=== PATIENT | female | born 1945 | race Caucasian/White ===

== ENCOUNTER 2016-05-13 18:54 | Inpatient (IN) | payer MEDICARE, OTHER ==
[~2016-05-13] VITALS: Ht 165.1 cm; Wt 63.0 kg
[~2016-05-13 18:54] MED LIST: ALBU0.63 NEB; AMOX1TAB11 PO; ASPI-482 PO; ATOR10TA60 PO; BENZ100C PO; BUPR200T2 PO; CALC-178 PO; CHOL10003 PO; DEXT30CA6 PO; DICY20TA30 PO; ESCI20TA10 PO; FLUT1DIS IH; FLUT1DIS3 INH; GLUC1CAP48 PO; GUAI100S2 PO; LEVO88TA2 PO; LORA-434 PO; LOSA1TAB12 PO; LUBI8CAP3 PO; MULT1TAB52 PO; PANT40TA5 PO; POTA10CA PO; PROAIR HFA8.5 GM IH; QUET150T PO; ROFL500T PO; TIOT18CA IH
[2016-05-13 20:50] VITALS: BP 146/96
[2016-05-13] MEDS ORDERED: BENZONATATE 100 MG CAPSULE. PO PRN (21:45)
[2016-05-13] MEDS ORDERED: NON FORMULARY ITEM (Albuterol Sulfate (Proair Hfa Inhaler) 2 PUFF) IH SCH (21:45)
[2016-05-13] MEDS ORDERED: OXYCODONE IR 5 MG TABLET. PO PRN (21:45)
[2016-05-13] MEDS ORDERED: MAG HYDROX/ALUMINUM HYD/SIMETH 30 ML ORAL.SUSP PO PRN (21:45)
[2016-05-13] MEDS ORDERED: ONDANSETRON PF 4 MG/2 ML VIAL. IV PRN (21:45)
[2016-05-13] MEDS ORDERED: PROCHLORPERAZINE 25 MG SUPP.RECT. PR PRN (21:45)
[2016-05-13] MEDS ORDERED: CALCIUM CARBONATE 500 MG TAB.CHEW PO PRN (21:45)
[2016-05-13] MEDS ORDERED: PROCHLORPERAZINE 10 MG/2 ML VIAL. IV PRN (21:45)
[2016-05-13] MEDS: MORPHINE SULFATE 2 MG/ML DISP.SYRIN. IV PRN ×2 (21:55→23:55)
[2016-05-13] MEDS: IV 1/2 NORMAL SALINE 1,000 ML IV SCH (22:43)
[2016-05-13] MEDS: ENOXAPARIN 40 MG/0.4 ML DISP.SYRIN. SQ SCH (22:44)
[2016-05-13] MEDS: QUEtiapine 50 MG TAB.ER.24H. PO SCH (22:44)
[2016-05-13] MEDS: DICYCLOMINE HCL 10 MG CAPSULE PO SCH (22:45)
[2016-05-13] MEDS: ATORVASTATIN CALCIUM 10 MG TABLET. PO SCH (22:46)
[2016-05-13 23:00] VITALS: BP 142/54
[2016-05-14] VITALS (13 sets, daily range): BP systolic 87–131; BP diastolic 45–73
[2016-05-14] MEDS: ALBUTEROL SULFATE 2.5 MG/3 ML NEBU. NEB PRN (00:15)
[2016-05-14] MEDS: FENTANYL PF 100 MCG/2 ML VIAL. IV PRN ×6 (01:19→20:06)
[2016-05-14] MEDS: MORPHINE SULFATE 2 MG/ML DISP.SYRIN. IV PRN ×6 (01:54→22:28)
[2016-05-14 04:51] LABS: BASO % 0 % (0-3); EOS % 1 % (0-3); HEMATOCRIT 26.5 % (36.0-47.0); HEMOGLOBIN 9.1 g/dL (12.0-15.5); LYMPH # 1.9 x10^3/uL (1.0-4.8); LYMPH % 18 % (24-48); MEAN CORPUSCULAR HEMOGLOBIN 32 pg (25-35); MEAN CORPUSCULAR HGB CONC 34 g/dL (31-37); MEAN CORPUSCULAR VOLUME 92 fL (79-100); MONO % 8 % (0-9); NEUT % 72 % (31-73); PLATELET COUNT 254 x10^3/uL (140-400); RED BLOOD COUNT 2.87 x10^6/uL (3.50-5.40); RED CELL DISTRIBUTION WIDTH 16.2 % (11.5-14.5); WHITE BLOOD COUNT 10.5 x10^3/uL (4.0-11.0)
[2016-05-14 05:00] LABS: CALCIUM 8.7 mg/dL (8.5-10.1); CREATININE 0.8 mg/dL (0.6-1.0); GFR 70.7; POTASSIUM 3.3 mmol/L (3.5-5.1)
[2016-05-14] MEDS: LEVOTHYROXINE 88 MCG TABLET PO SCH (06:06)
[2016-05-14] MEDS ORDERED: ALPR1TAB2 PO (06:49)
[2016-05-14] MEDS ORDERED: HYDR-2666 PO (07:02)
[2016-05-14] MEDS ORDERED: ARIP5TAB6 PO (07:02)
[2016-05-14] MEDS: IPRATRPIUM/ALBUTEROL 0.5/2.5MG 3 ML NEBU. NEB SCH ×4 (07:14→20:00)
[2016-05-14] MEDS: BUDESONIDE 0.5 MG/2 ML NEBU NEB SCH ×2 (07:15→20:00)
[2016-05-14] MEDS: PANTOPRAZOLE 40 MG TABLET. PO SCH (07:30)
[2016-05-14] MEDS ORDERED: LEVO50TA PO (07:39)
[2016-05-14] MEDS ORDERED: MELO-150 PO (07:39)
[2016-05-14] MEDS ORDERED: TRAZ100T12 PO (07:39)
[2016-05-14] MEDS ORDERED: DULO60CA6 PO (07:39)
[2016-05-14] MEDS ORDERED: LOSA1TAB17 PO (07:39)
[2016-05-14] MEDS ORDERED: CHOL10007 PO (07:39)
[2016-05-14] MEDS ORDERED: POTA20TA82 PO (07:39)
[2016-05-14] MEDS ORDERED: QUET200T4 PO (07:39)
[2016-05-14] MEDS ORDERED: TERI2.4P SQ ×2 (07:39→16:56)
[2016-05-14] MEDS ORDERED: BENZ100C PO (07:39)
[2016-05-14] MEDS ORDERED: GUAI600T28 PO (07:39)
[2016-05-14] MEDS ORDERED: LUTE1CAP3 PO (07:39)
[2016-05-14] MEDS: POTASSIUM CHLORIDE 10 MEQ TABLET.ER. PO SCH (08:00)
[2016-05-14] MEDS ORDERED: POTASSIUM CHLORIDE 20MEQ 50 ML IV ONE (08:30)
[2016-05-14] MEDS ORDERED: hydrALAZINE 20 MG/ML VIAL. IVP PRN (08:30)
[2016-05-14] MEDS ORDERED: BENZONATATE 100 MG CAPSULE. PO PRN (08:30)
[2016-05-14] MEDS: LEVOTHYROXINE 50 MCG TABLET PO SCH (08:30)
[2016-05-14] MEDS ORDERED: ALBUTEROL SULFATE 2.5 MG/3 ML NEBU. NEB PRN (08:30)
[2016-05-14] MEDS ORDERED: MORPHINE SULFATE 4 MG/ML DISP.SYRIN. IV PRN ×2 (08:30→20:15)
[2016-05-14] MEDS ORDERED: POTASSIUM CHLORIDE 40 MEQ PO SCH (09:00)
[2016-05-14] MEDS: DULOXETINE HCL 30 MG CAPSULE.DR. PO SCH (09:00)
[2016-05-14] MEDS ORDERED: NON FORMULARY ITEM (Albuterol Sulfate (Albuterol Sulfate Neb Soln) 1 VIAL) NEB SCH (09:00)
[2016-05-14] MEDS ORDERED: NON FORMULARY ITEM (Losartan/Hydrochlorothiazide (Losartan-Hctz 100-25 Mg Tab) 1 EACH) PO SCH (09:00)
[2016-05-14] MEDS: GUAIFENESIN 200 MG/10 ML LIQUID. PO SCH ×3 (09:00→21:14)
[2016-05-14] MEDS: MULTIVITAMIN with MINERAL TABLET. PO SCH (09:00)
[2016-05-14] MEDS ORDERED: buPROPion SR 100 MG TABLET.SA. PO SCH (09:00)
[2016-05-14] MEDS ORDERED: CHOLECALCIFEROL 1000 UNIT PO SCH (09:00)
[2016-05-14] MEDS ORDERED: NON FORMULARY ITEM (Fluticasone/Salmeterol (Advair 250-50 Diskus) 1 PUFF) INH SCH (09:00)
[2016-05-14] MEDS: CHOLECALCIFEROL (VITAMIN D3) 1,000 UNIT TABLET PO SCH (09:00)
[2016-05-14] MEDS: LUBIPROSTONE 8 MCG CAPSULE PO SCH ×2 (09:00→21:00)
[2016-05-14] MEDS: ROFLUMILAST 500 MCG TABLET. PO SCH (09:00)
[2016-05-14] MEDS: ESCITALOPRAM 10 MG TABLET. PO SCH (09:00)
[2016-05-14] MEDS: LOSARTAN POTASSIUM 50 MG TABLET. PO SCH (09:00)
[2016-05-14] MEDS: ALPRAZOLAM 1 MG TABLET PO SCH ×3 (09:00→21:11)
[2016-05-14] MEDS ORDERED: NON FORMULARY ITEM (Tiotropium Bromide (Spiriva) 1 CAP) IH SCH (09:00)
[2016-05-14] MEDS: DICYCLOMINE HCL 10 MG CAPSULE PO SCH ×4 (09:00→21:11)
[2016-05-14] MEDS ORDERED: NON FORMULARY ITEM (Dextroamphetamine/Amphetamine (Adderall Xr 30 Mg Capsule) 1 CAP) PO SCH (09:00)
[2016-05-14] MEDS ORDERED: LORAZEPAM 1 MG TABLET. PO SCH (09:00)
[2016-05-14] MEDS: IV 1/2 NORMAL SALINE 1,000 ML IV SCH ×2 (10:09→18:00)
[2016-05-14] MEDS: POTASSIUM CHLORIDE 10MEQ 100 ML IV SCH ×2 (10:10→12:04)
--- NOTE | 2016-05-14 10:52 | PDOC ---
Provider Note Provider Note dictated Hx of severe oxygen dependant COPD/ prior h/o vent dependance post surgery under [place] Would prefer spinal if possible continue Nebs/ Check ABG will follow post op REGAN SABILLON MD May 14, 2016 10:52
[2016-05-14 10:56] LABS: PROTHROMBIN TIME PATIENT 12.3 SEC (11.7-14.0)
[2016-05-14] MEDS ORDERED: IV RINGERS,LACTATED 1000ML 1,000 ML IV SCH (11:18)
[2016-05-14] MEDS ORDERED: PROCHLORPERAZINE 10 MG/2 ML VIAL. IV PRN (11:30)
[2016-05-14] MEDS ORDERED: HYDROMORPHONE 2 MG/ML VIAL. IV PRN (11:30)
[2016-05-14] MEDS ORDERED: MORPHINE SULFATE 2 MG/ML DISP.SYRIN. IV PRN (11:30)
[2016-05-14] MEDS ORDERED: FENTANYL PF 100 MCG/2 ML VIAL. IV PRN ×2 (11:30→20:15)
[2016-05-14] MEDS ORDERED: LIDOCAINE 1% 1 ML SYRINGE. ID PRN (11:30)
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
[2016-05-14] MEDS ORDERED: IPRATRPIUM/ALBUTEROL 0.5/2.5MG 3 ML NEBU. NEB SCH (12:00)
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
[2016-05-14 13:39] LABS: HCO3 ABG 27 mmol/L (21-28); PCO2 ABG 43 mmHg (35-46); PH ABG 7.41 (7.35-7.45); PO2 ABG 62 mmHg (65-108); SAT O2 ABG 90 % (92-99)
[2016-05-14] MEDS ORDERED: MAGNESIUM HYDROXIDE 2,400 MG/30 ML ORAL.SUSP. PO PRN (13:45)
[2016-05-14] MEDS ORDERED: ACETAMINOPHEN 325 MG TABLET. PO PRN (13:45)
--- NOTE | 2016-05-14 14:20 | EKG ---
[facility] [address] [place] [address] Test Date: 2016-05-14 Test Time: 14:12:24 Pat Name: DICK DOBBINS Department: Room: [facility] Gender: F Shift Commander: MIKEY : 1945 Requested By: ALEXI VERAS Order Number: [id number] Reading MD: Measurements Intervals [place] Rate: 107 P: 52 SC: 128 QRS: 54 QRSD: 78 T: 45 QT: 330 QTc: 446 Interpretive Statements SINUS TACHYCARDIA QRS(T) CONTOUR ABNORMALITY CONSIDER ANTEROSEPTAL MYOCARDIAL DAMAGE CONSIDER INFERIOR MYOCARDIAL DAMAGE POSSIBLY ABNORMAL ECG RI6.01 Compared to ECG 11/14/2014 21:26:25 Sinus rhythm no longer present Prolonged QT interval no longer present
[2016-05-14] MEDS ORDERED: DEXAMETHASONE SOD PHOS 20 MG/5 ML VIAL. ONE (15:19)
[2016-05-14] MEDS ORDERED: ONDANSETRON PF 4 MG/2 ML VIAL. ONE (15:19)
[2016-05-14] MEDS ORDERED: PROPOFOL 20 ML IV ONE (15:19)
[2016-05-14] MEDS ORDERED: FENTANYL PF 100 MCG/2 ML VIAL. ONE (15:19)
[2016-05-14] MEDS ORDERED: MIDAZOLAM HCL 2 MG/2 ML VIAL. ONE (16:12)
[2016-05-14] MEDS ORDERED: FENTANYL PF 100 MCG/2 ML VIAL. IV ONE (16:15)
[2016-05-14] MEDS ORDERED: CEFAZOLIN 2GM PREMIX 50 ML IV ONE (17:00)
[2016-05-14] MEDS ORDERED: BUPIVACAINE MPF 0.5% 30 ML VIAL. ONE (18:38)
[2016-05-14] MEDS ORDERED: PHENYLEPHRINE in 0.9% NACL PF 1 MG/10 ML DISP.SYRIN. IV ONE (18:56)
[2016-05-14] MEDS ORDERED: PHENYLEPHRINE 10 MG/ML VIAL. ONE (18:56)
[2016-05-14] MEDS ORDERED: DEXTROSE 50% 25 GM / 50ML DISP.SYRIN. IV PRN (20:15)
[2016-05-14] MEDS ORDERED: POLYETHYLENE GLYCOL 3350 17 GM PACKET. PO PRN (20:15)
[2016-05-14] MEDS ORDERED: OXYCODONE IR 5 MG TABLET. PO PRN (20:15)
[2016-05-14] MEDS ORDERED: ONDANSETRON PF 4 MG/2 ML VIAL. IV PRN (20:15)
[2016-05-14 20:40] LABS: MAGNESIUM 1.3 mg/dL (1.8-2.4); PHOSPHORUS 4.3 mg/dL (2.6-4.7)
[2016-05-14] MEDS ORDERED: WARFARIN 6 MG TABLET. PO ONE (21:00)
[2016-05-14] MEDS ORDERED: QUETIAPINE FUMARATE 200 MG PO SCH (21:00)
[2016-05-14] MEDS ORDERED: ATORVASTATIN CALCIUM 10 MG TABLET. PO SCH (21:00)
[2016-05-14] MEDS: QUEtiapine 50 MG TAB.ER.24H. PO SCH (21:09)
[2016-05-14] MEDS: ATORVASTATIN CALCIUM 10 MG TABLET. PO SCH (21:11)
[2016-05-14] MEDS: traZODone 100 MG TABLET. PO SCH (21:11)
[2016-05-14] MEDS: DOCUSATE SODIUM 100 MG CAPSULE PO SCH (21:11)
[2016-05-14] MEDS: HYDROCODONE/APAP 5/325MG TABLET. PO PRN (21:13)
[2016-05-14] MEDS: ENOXAPARIN 40 MG/0.4 ML DISP.SYRIN. SQ SCH (21:26)
[2016-05-14] MEDS: SENNOSIDES/DOCUSATE 8.6/50MG TABLET. PO SCH (21:31)
[2016-05-14] MEDS ORDERED: MAGNESIUM SULFATE 2GM 50 ML IV ONE (22:00)
[2016-05-14] MEDS: NON FORMULARY ITEM (Teriparatide (Forteo) 20 MCG) SQ SCH (22:58)
[2016-05-14] MEDS: CEFAZOLIN 2GM PREMIX 50 ML IV SCH (23:38)
[2016-05-15] MEDS: IV 1/2 NORMAL SALINE 1,000 ML IV SCH ×3 (02:27→22:26)
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
[2016-05-15 03:00] VITALS: BP 115/76
[2016-05-15 05:27] LABS: BASO % 0 % (0-3); EOS % 0 % (0-3); HEMATOCRIT 22.7 % (36.0-47.0); HEMOGLOBIN 7.6 g/dL (12.0-15.5); LYMPH # 0.7 x10^3/uL (1.0-4.8); LYMPH % 10 % (24-48); MEAN CORPUSCULAR HEMOGLOBIN 32 pg (25-35); MEAN CORPUSCULAR HGB CONC 34 g/dL (31-37); MEAN CORPUSCULAR VOLUME 94 fL (79-100); MONO % 11 % (0-9); NEUT % 79 % (31-73); PLATELET COUNT 216 x10^3/uL (140-400); RED BLOOD COUNT 2.42 x10^6/uL (3.50-5.40); RED CELL DISTRIBUTION WIDTH 15.8 % (11.5-14.5); WHITE BLOOD COUNT 6.9 x10^3/uL (4.0-11.0)
[2016-05-15] MEDS: CEFAZOLIN 2GM PREMIX 50 ML IV SCH ×2 (05:53→13:00)
[2016-05-15] MEDS: LEVOTHYROXINE 50 MCG TABLET PO SCH (05:53)
[2016-05-15] MEDS: PANTOPRAZOLE 40 MG TABLET. PO SCH (05:53)
[2016-05-15] MEDS: LEVOTHYROXINE 88 MCG TABLET PO SCH (05:53)
[2016-05-15 05:56] LABS: CALCIUM 8.1 mg/dL (8.5-10.1); CREATININE 0.7 mg/dL (0.6-1.0); GFR 82.5
[2016-05-15] MEDS ORDERED: MAGNESIUM HYDROXIDE 2,400 MG/30 ML ORAL.SUSP. PO PRN (06:00)
[2016-05-15 07:00] VITALS: BP 115/62
[2016-05-15] MEDS: IPRATRPIUM/ALBUTEROL 0.5/2.5MG 3 ML NEBU. NEB SCH ×4 (07:04→20:50)
[2016-05-15] MEDS: BUDESONIDE 0.5 MG/2 ML NEBU NEB SCH ×2 (07:05→20:50)
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
[2016-05-15] MEDS: ESCITALOPRAM 10 MG TABLET. PO SCH (09:00)
[2016-05-15] MEDS ORDERED: NON FORMULARY ITEM (Teriparatide (Forteo) 20 MCG) SQ SCH ×2 (09:00)
[2016-05-15] MEDS: SENNOSIDES/DOCUSATE 8.6/50MG TABLET. PO SCH ×2 (09:00→09:33)
[2016-05-15] MEDS: NON FORMULARY ITEM (Dextroamphetamine/Amphetamine (Adderall Xr 30 Mg Capsule) 1 CAP) PO SCH (09:31)
[2016-05-15] MEDS: GUAIFENESIN 200 MG/10 ML LIQUID. PO SCH ×3 (09:32→22:11)
[2016-05-15] MEDS: MULTIVITAMIN with MINERAL TABLET. PO SCH (09:32)
[2016-05-15] MEDS: CHOLECALCIFEROL (VITAMIN D3) 1,000 UNIT TABLET PO SCH (09:32)
[2016-05-15] MEDS: ROFLUMILAST 500 MCG TABLET. PO SCH (09:32)
[2016-05-15] MEDS: POTASSIUM CHLORIDE 10 MEQ TABLET.ER. PO SCH (09:32)
[2016-05-15] MEDS: LOSARTAN POTASSIUM 50 MG TABLET. PO SCH (09:32)
[2016-05-15] MEDS: DULOXETINE HCL 30 MG CAPSULE.DR. PO SCH (09:32)
[2016-05-15] MEDS: ALPRAZOLAM 1 MG TABLET PO SCH ×3 (09:33→22:11)
[2016-05-15] MEDS: DOCUSATE SODIUM 100 MG CAPSULE PO SCH ×2 (09:33→22:10)
[2016-05-15] MEDS: DICYCLOMINE HCL 10 MG CAPSULE PO SCH ×4 (09:33→22:09)
[2016-05-15] MEDS: ARIPIPRAZOLE 5 MG TABLET. PO SCH (09:33)
[2016-05-15 10:42] LABS: INR 1.1 (0.8-1.1); PROTHROMBIN TIME PATIENT 13.1 SEC (11.7-14.0)
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
[2016-05-15 11:00] VITALS: BP 95/57
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
[2016-05-15] MEDS ORDERED: MAGNESIUM CITRATE 296 ML SOLUTION. PO ONE (12:45)
[2016-05-15] MEDS: LIDOCAINE (700MG/PATCH) PATCH. TD SCH (13:15)
[2016-05-15] MEDS: HYDROCODONE/APAP 7.5/325MG TABLET. PO PRN ×2 (13:22→18:38)
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
[2016-05-15 15:00] VITALS: BP 92/55
[2016-05-15] MEDS ORDERED: WARFARIN 6 MG TABLET. PO ONE (16:00)
[2016-05-15] MEDS ORDERED: BISACODYL 10 MG SUPP.RECT PR PRN (16:00)
[2016-05-15 19:00] VITALS: BP 83/48
[2016-05-15] MEDS ORDERED: IV 1/2 NORMAL SALINE 1,000 ML IV ONE (20:45)
[2016-05-15] MEDS: NON FORMULARY ITEM (Teriparatide (Forteo) 20 MCG) SQ SCH (21:00)
[2016-05-15] MEDS: ATORVASTATIN CALCIUM 10 MG TABLET. PO SCH (22:10)
[2016-05-15] MEDS: traZODone 100 MG TABLET. PO SCH (22:10)
[2016-05-15] MEDS: QUEtiapine 50 MG TAB.ER.24H. PO SCH (22:11)
[2016-05-15] MEDS: ENOXAPARIN 40 MG/0.4 ML DISP.SYRIN. SQ SCH (22:13)
[2016-05-15 23:43] VITALS: BP 113/59
[2016-05-16] MEDS: HYDROCODONE/APAP 7.5/325MG TABLET. PO PRN ×4 (00:44→21:16)
[2016-05-16 03:19] VITALS: BP 110/61
[2016-05-16] MEDS: LEVOTHYROXINE 50 MCG TABLET PO SCH (06:17)
[2016-05-16] MEDS: PANTOPRAZOLE 40 MG TABLET. PO SCH (06:17)
[2016-05-16] MEDS: IV 1/2 NORMAL SALINE 1,000 ML IV SCH ×2 (06:18→22:23)
[2016-05-16 07:00] VITALS: BP 105/64
[2016-05-16] MEDS: IPRATRPIUM/ALBUTEROL 0.5/2.5MG 3 ML NEBU. NEB SCH ×4 (07:43→20:46)
[2016-05-16] MEDS: BUDESONIDE 0.5 MG/2 ML NEBU NEB SCH ×2 (07:43→20:46)
[2016-05-16] MEDS: NON FORMULARY ITEM (Dextroamphetamine/Amphetamine (Adderall Xr 30 Mg Capsule) 1 CAP) PO SCH (09:00)
[2016-05-16] MEDS: GUAIFENESIN 200 MG/10 ML LIQUID. PO SCH ×3 (10:04→21:20)
[2016-05-16] MEDS: ROFLUMILAST 500 MCG TABLET. PO SCH (10:04)
[2016-05-16] MEDS: MULTIVITAMIN with MINERAL TABLET. PO SCH (10:04)
[2016-05-16] MEDS: DOCUSATE SODIUM 100 MG CAPSULE PO SCH ×2 (10:04→21:20)
[2016-05-16] MEDS: DICYCLOMINE HCL 10 MG CAPSULE PO SCH ×4 (10:04→21:19)
[2016-05-16] MEDS: CHOLECALCIFEROL (VITAMIN D3) 1,000 UNIT TABLET PO SCH (10:04)
[2016-05-16] MEDS: ALPRAZOLAM 1 MG TABLET PO SCH ×3 (10:04→21:20)
[2016-05-16] MEDS: DULOXETINE HCL 30 MG CAPSULE.DR. PO SCH (10:04)
[2016-05-16] MEDS: POTASSIUM CHLORIDE 10 MEQ TABLET.ER. PO SCH (10:05)
[2016-05-16] MEDS: SENNOSIDES/DOCUSATE 8.6/50MG TABLET. PO SCH (10:05)
[2016-05-16] MEDS: ESCITALOPRAM 10 MG TABLET. PO SCH (10:05)
[2016-05-16] MEDS: LIDOCAINE (700MG/PATCH) PATCH. TD SCH (10:06)
[2016-05-16] MEDS: ARIPIPRAZOLE 5 MG TABLET. PO SCH (10:06)
[2016-05-16 11:18] LABS: INR 2.2 (0.8-1.1); PROTHROMBIN TIME PATIENT 23.3 SEC (11.7-14.0)
[2016-05-16 11:19] VITALS: BP 91/45
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
[2016-05-16] MEDS ORDERED: MAGNESIUM CITRATE 296 ML SOLUTION. PO ONE (14:45)
[2016-05-16] MEDS: POLYETHYLENE GLYCOL 3350 17 GM PACKET. PO SCH ×2 (14:59→21:16)
[2016-05-16 15:00] VITALS: BP 102/62
[2016-05-16] MEDS ORDERED: WARFARIN 1 MG TABLET. PO ONE (16:00)
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
[2016-05-16 19:15] VITALS: BP 125/72
[2016-05-16] MEDS: ONDANSETRON PF 4 MG/2 ML VIAL. IV PRN (21:15)
[2016-05-16] MEDS: QUEtiapine 50 MG TAB.ER.24H. PO SCH (21:20)
[2016-05-16] MEDS: ATORVASTATIN CALCIUM 10 MG TABLET. PO SCH (21:20)
[2016-05-16] MEDS: traZODone 100 MG TABLET. PO SCH (21:20)
[2016-05-16] MEDS: NON FORMULARY ITEM (Teriparatide (Forteo) 20 MCG) SQ SCH (21:25)
[2016-05-16 23:46] VITALS: BP 118/52
[2016-05-17] VITALS (11 sets, daily range): BP systolic 95–139; BP diastolic 50–80
[2016-05-17] MEDS: ALBUTEROL SULFATE 2.5 MG/3 ML NEBU. NEB PRN (00:49)
[2016-05-17] MEDS ORDERED: BREO ELLIPTA 21 EACH IH (02:54)
[2016-05-17] MEDS ORDERED: TIOT18CA IH (02:54)
[2016-05-17] MEDS ORDERED: MELA3TAB PO (02:54)
[2016-05-17] MEDS ORDERED: UBID100C3 PO (02:54)
[2016-05-17] MEDS ORDERED: OMEG300C PO (02:54)
[2016-05-17] MEDS ORDERED: MIRT15TA3 PO (02:54)
[2016-05-17] MEDS: IV 1/2 NORMAL SALINE 1,000 ML IV SCH ×2 (06:29→15:38)
[2016-05-17] MEDS: HYDROCODONE/APAP 7.5/325MG TABLET. PO PRN (06:36)
[2016-05-17] MEDS: LEVOTHYROXINE 50 MCG TABLET PO SCH (06:36)
[2016-05-17] MEDS: PANTOPRAZOLE 40 MG TABLET. PO SCH (06:36)
[2016-05-17] MEDS: BUDESONIDE 0.5 MG/2 ML NEBU NEB SCH ×2 (07:21→21:37)
[2016-05-17] MEDS: IPRATRPIUM/ALBUTEROL 0.5/2.5MG 3 ML NEBU. NEB SCH ×4 (07:21→21:37)
[2016-05-17] MEDS: LIDOCAINE (700MG/PATCH) PATCH. TD SCH (09:00)
[2016-05-17] MEDS: POLYETHYLENE GLYCOL 3350 17 GM PACKET. PO SCH ×2 (09:00→22:26)
[2016-05-17] MEDS: SENNOSIDES/DOCUSATE 8.6/50MG TABLET. PO SCH (09:25)
[2016-05-17] MEDS: POTASSIUM CHLORIDE 10 MEQ TABLET.ER. PO SCH (09:25)
[2016-05-17] MEDS: GUAIFENESIN 200 MG/10 ML LIQUID. PO SCH ×3 (09:25→22:27)
[2016-05-17] MEDS: ROFLUMILAST 500 MCG TABLET. PO SCH (09:25)
[2016-05-17] MEDS: ALPRAZOLAM 1 MG TABLET PO SCH (09:26)
[2016-05-17] MEDS: MULTIVITAMIN with MINERAL TABLET. PO SCH (09:26)
[2016-05-17] MEDS: ESCITALOPRAM 10 MG TABLET. PO SCH (09:26)
[2016-05-17] MEDS: ARIPIPRAZOLE 5 MG TABLET. PO SCH (09:26)
[2016-05-17] MEDS: DOCUSATE SODIUM 100 MG CAPSULE PO SCH ×2 (09:26→22:25)
[2016-05-17] MEDS: DICYCLOMINE HCL 10 MG CAPSULE PO SCH ×4 (09:26→22:27)
[2016-05-17] MEDS: CHOLECALCIFEROL (VITAMIN D3) 1,000 UNIT TABLET PO SCH (09:27)
[2016-05-17] MEDS: DULOXETINE HCL 30 MG CAPSULE.DR. PO SCH (09:27)
[2016-05-17 12:08] LABS: HCO3 ABG 35 mmol/L (21-28); PH ABG 7.38 (7.35-7.45); PO2 ABG 70 mmHg (65-108); SAT O2 ABG 95 % (92-99)
[2016-05-17 12:15] LABS: FIO2 ABG 32; PCO2 ABG 61 mmHg (35-46)
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
[2016-05-17 12:29] LABS: PROTHROMBIN TIME PATIENT 29.5 SEC (11.7-14.0)
[2016-05-17] MEDS: NON FORMULARY ITEM (Dextroamphetamine/Amphetamine (Adderall Xr 30 Mg Capsule) 1 CAP) PO SCH (12:45)
[2016-05-17] MEDS: ONDANSETRON PF 4 MG/2 ML VIAL. IV PRN (12:47)
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
[2016-05-17 13:16] LABS: ALBUMIN 2.4 g/dL (3.4-5.0); ALBUMIN/GLOBULIN RATIO 0.8 (1.0-1.7); CALCIUM 7.5 mg/dL (8.5-10.1); CREATININE 0.4 mg/dL (0.6-1.0); GFR 157.3; TOTAL BILIRUBIN 0.2 mg/dL (0.2-1.0); TOTAL PROTEIN 5.3 g/dL (6.4-8.2)
[2016-05-17 13:21] LABS: BASO % 0 % (0-3); EOS % 1 % (0-3); LYMPH # 0.9 x10^3/uL (1.0-4.8); LYMPH % 12 % (24-48); MEAN CORPUSCULAR HEMOGLOBIN 31 pg (25-35); MEAN CORPUSCULAR HGB CONC 33 g/dL (31-37); MEAN CORPUSCULAR VOLUME 95 fL (79-100); MONO % 9 % (0-9); NEUT % 77 % (31-73); PLATELET COUNT 230 x10^3/uL (140-400); RED BLOOD COUNT 2.17 x10^6/uL (3.50-5.40); RED CELL DISTRIBUTION WIDTH 15.7 % (11.5-14.5)
[2016-05-17 13:24] LABS: HEMATOCRIT 20.6 % (36.0-47.0); HEMOGLOBIN 6.8 g/dL (12.0-15.5)
--- NOTE | 2016-05-17 13:57 | RAD ---
Exam performed: CT chest with contrast. History: Patient has been coughing up blood since 1 day, history of pulmonary sarcoidosis. Date of service: 05/17/16. Comparison: One view chest from earlier today. Technique: Contiguous helical acquisitions are obtained of the chest during intravenous administration of 90 cc of Omnipaque 350. Sagittal and coronal MIP images are obtained and reviewed. Findings: Adequate opacification of the pulmonary arteries. No filling defects to suggest pulmonary embolism is noted. The aorta is normal in course and caliber without aneurysm. Occasional atheromatous plaquing is seen in the distal thoracic aorta. Structures at the thoracic inlet including both lobes of the thyroid gland are normal. The neck and intrathoracic great vessels appear normal in course and caliber. There is a 1.5 cm precarinal lymph node. Fullness in the subcarinal region representing a approximately 1.2 cm subcarinal lymph node. Bilateral hilar lymph nodes. The heart size is within limits of normal without pericardial effusion. Interrogation of lungs demonstrates coarse interstitial markings in both lungs. There are patchy areas of parenchymal opacities seen in both upper lobes. Emphysematous changes. There are areas of groundglass opacities in both lower lobes. No pleural effusion. Limited evaluation of the upper abdominal structures is unremarkable. Impression: 1. No convincing evidence of pulmonary embolism or aortic dissection noted. 2. Coarse prominent interstitial markings and airspace opacities and emphysematous changes in both upper lungs. The constellation of findings may be related to known history of pulmonary sarcoidosis. 3. Groundglass opacities in both lower lobes. Early infiltrates not excluded. Correlate clinically PQRS Compliance Statement: One or more of the following individualized dose reduction techniques were utilized for this examination: 1. Automated exposure control 2. Adjustment of the mA and/or kV according to patient size 3. Use of iterative reconstruction technique
[2016-05-17] MEDS: ALPRAZOLAM 0.5 MG TABLET PO SCH ×2 (14:00→22:27)
[2016-05-17] MEDS ORDERED: WARFARIN 1 MG TABLET. PO ONE (16:00)
[2016-05-17] MEDS ORDERED: METOCLOPRAMIDE HCL 10 MG/2 ML VIAL. IV PRN (18:00)
[2016-05-17] MEDS ORDERED: METOCLOPRAMIDE HCL 10 MG/2 ML VIAL. IV ONE (18:00)
[2016-05-17] MEDS: ATORVASTATIN CALCIUM 10 MG TABLET. PO SCH (22:25)
[2016-05-17] MEDS: traZODone 100 MG TABLET. PO SCH (22:26)
[2016-05-17] MEDS: QUEtiapine 50 MG TAB.ER.24H. PO SCH (22:27)
[2016-05-17] MEDS: MORPHINE SULFATE 2 MG/ML DISP.SYRIN. IV PRN (22:28)
[2016-05-17] MEDS: NON FORMULARY ITEM (Teriparatide (Forteo) 20 MCG) SQ SCH (22:30)
[2016-05-17] MEDS: HYDROCODONE/APAP 5/325MG TABLET. PO PRN (23:49)
[2016-05-18] VITALS (9 sets, daily range): BP systolic 110–155; BP diastolic 58–90
[2016-05-18] MEDS: ONDANSETRON PF 4 MG/2 ML VIAL. IV PRN (00:02)
[2016-05-18] MEDS: MORPHINE SULFATE 2 MG/ML DISP.SYRIN. IV PRN (01:03)
[2016-05-18] MEDS: IV 1/2 NORMAL SALINE 1,000 ML IV SCH ×3 (02:00→21:05)
[2016-05-18] MEDS: HYDROCODONE/APAP 7.5/325MG TABLET. PO PRN ×2 (03:11→08:06)
[2016-05-18] MEDS: IPRATRPIUM/ALBUTEROL 0.5/2.5MG 3 ML NEBU. NEB SCH ×4 (07:20→20:02)
[2016-05-18] MEDS: BUDESONIDE 0.5 MG/2 ML NEBU NEB SCH ×2 (07:20→20:02)
[2016-05-18] MEDS: POLYETHYLENE GLYCOL 3350 17 GM PACKET. PO SCH ×2 (08:03→21:05)
[2016-05-18] MEDS: CHOLECALCIFEROL (VITAMIN D3) 1,000 UNIT TABLET PO SCH (08:03)
[2016-05-18] MEDS: MULTIVITAMIN with MINERAL TABLET. PO SCH (08:04)
[2016-05-18] MEDS: DICYCLOMINE HCL 10 MG CAPSULE PO SCH ×4 (08:04→21:05)
[2016-05-18] MEDS: ESCITALOPRAM 10 MG TABLET. PO SCH (08:04)
[2016-05-18] MEDS: DULOXETINE HCL 30 MG CAPSULE.DR. PO SCH (08:05)
[2016-05-18] MEDS: GUAIFENESIN 200 MG/10 ML LIQUID. PO SCH ×3 (08:05→21:05)
[2016-05-18] MEDS: LIDOCAINE (700MG/PATCH) PATCH. TD SCH (08:05)
[2016-05-18] MEDS: SENNOSIDES/DOCUSATE 8.6/50MG TABLET. PO SCH (08:05)
[2016-05-18] MEDS: POTASSIUM CHLORIDE 10 MEQ TABLET.ER. PO SCH (08:06)
[2016-05-18] MEDS: DOCUSATE SODIUM 100 MG CAPSULE PO SCH ×2 (08:06→21:06)
[2016-05-18] MEDS: ROFLUMILAST 500 MCG TABLET. PO SCH (08:06)
[2016-05-18] MEDS: ALPRAZOLAM 0.5 MG TABLET PO SCH ×3 (08:07→21:06)
[2016-05-18] MEDS: LEVOTHYROXINE 50 MCG TABLET PO SCH (08:07)
[2016-05-18] MEDS: PANTOPRAZOLE 40 MG TABLET. PO SCH (08:07)
[2016-05-18] MEDS: ARIPIPRAZOLE 5 MG TABLET. PO SCH (08:07)
[2016-05-18] MEDS: NON FORMULARY ITEM (Dextroamphetamine/Amphetamine (Adderall Xr 30 Mg Capsule) 1 CAP) PO SCH (09:00)
[2016-05-18 11:11] LABS: BILIRUBIN,URINE NEGATIVE (NEG); GLUCOSE,URINE NEGATIVE (NEG); NITRITE,URINE NEGATIVE (NEG); PROTEIN,URINE NEGATIVE (NEG-TRACE); UROBILINOGEN,URINE 0.2 mg/dL (0.2 mg/dL)
[2016-05-18 12:09] LABS: BACTERIA,URINE MODERATE /HPF (0-FEW); RBC,URINE RARE /HPF (0-2); SQUAMOUS EPITHELIAL CELL,UR OCC /LPF
[2016-05-18 12:50] LABS: BASO % 0 % (0-3); EOS % 2 % (0-3); HEMOGLOBIN 9.8 g/dL (12.0-15.5); LYMPH # 1.3 x10^3/uL (1.0-4.8); LYMPH % 19 % (24-48); MEAN CORPUSCULAR HEMOGLOBIN 30 pg (25-35); MEAN CORPUSCULAR HGB CONC 34 g/dL (31-37); MEAN CORPUSCULAR VOLUME 88 fL (79-100); MONO % 9 % (0-9); NEUT % 70 % (31-73); PLATELET COUNT 263 x10^3/uL (140-400); RED BLOOD COUNT 3.29 x10^6/uL (3.50-5.40); RED CELL DISTRIBUTION WIDTH 19.8 % (11.5-14.5)
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
[2016-05-18 13:10] LABS: INR 2.2 (0.8-1.1)
[2016-05-18 13:13] LABS: ALBUMIN 2.5 g/dL (3.4-5.0); ALBUMIN/GLOBULIN RATIO 0.7 (1.0-1.7); CREATININE 0.6 mg/dL (0.6-1.0); GFR 98.5; POTASSIUM 3.7 mmol/L (3.5-5.1); TOTAL BILIRUBIN 0.4 mg/dL (0.2-1.0)
[2016-05-18] MEDS: BUTALB/APAP/CAFEIN 50/325/40MG TABLET. PO PRN ×2 (13:19→21:07)
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
--- NOTE | 2016-05-18 13:47 | PDOC ---
GI PROGRESS NOTES Date Date/Time DATE: 05/18/16 TIME: 13:43 Subjective Subjective Abd improved after BM yesterday consult dictated yesterday Objective Vitals Vital Signs Date Time Temp Pulse Resp B/P Pulse Ox O2 Delivery O2 Flow Rate FiO2 05/18/16 11:02 91 Nasal Cannula 3.0 05/18/16 11:00 98.9 90 20 110/58 95 Nasal Cannula 3.0 98.9 05/18/16 08:00 Nasal Cannula 3.0 05/18/16 07:20 91 Nasal Cannula 3.0 05/18/16 07:00 97.7 94 20 136/77 90 Nasal Cannula 3.0 97.7 05/18/16 02:20 98.4 94 20 143/87 93 Nasal Cannula 3.0 98.4 05/18/16 01:20 97.9 94 16 121/74 Nasal Cannula 3.0 97.9 05/18/16 00:49 91 Nasal Cannula 3.0 05/18/16 00:29 98.2 96 18 131/74 Nasal Cannula 3.0 98.2 05/18/16 00:14 98.6 98 18 131/74 98.6 05/17/16 23:50 98.6 101 18 129/77 Nasal Cannula 3.0 98.6 05/17/16 23:00 97 Nasal Cannula 3.0 05/17/16 22:57 98.6 101 18 131/72 Nasal Cannula 3.0 98.6 05/17/16 22:28 20 97 Nasal Cannula 3.0 05/17/16 21:57 98.6 101 18 139/80 Nasal Cannula 3.0 98.6 05/17/16 21:37 97 Nasal Cannula 3.0 05/17/16 20:57 98.9 94 18 129/73 90 Nasal Cannula 3.0 98.9 05/17/16 20:42 98.6 94 20 122/71 93 Nasal Cannula 3.0 98.6 05/17/16 20:04 99.1 101 18 113/63 91 Nasal Cannula 3.0 99.1 05/17/16 20:00 Nasal Cannula 3.0 05/17/16 19:20 99.1 102 18 113/63 92 Nasal Cannula 2.0 99.1 05/17/16 17:45 94 Nasal Cannula 3.0 05/17/16 15:00 98.3 86 16 95/50 91 Nasal Cannula 4.0 98.3 Labs Labs Laboratory Tests Test 05/18/16 07:00 05/18/16 12:35 Urine Collection Type Unknown Urine Color Yellow Urine Clarity Clear Urine pH 7.0 Urine Specific [place] 1.015 Urine Protein Negativemg/dL (NEG-TRACE) Urine Glucose (UA) Negativemg/dL (NEG) Urine Ketones (Stick) 15mg/dL (NEG) Urine Blood Negative (NEG) Urine Nitrite Negative (NEG) Urine Bilirubin Negative (NEG) Urine Urobilinogen Dipstick 0.2mg/dL (0.2 mg/dL) Urine Leukocyte Esterase Negative (NEG) Urine RBC Rare/HPF (0-2) Urine WBC 1-4/HPF (0-4) Urine Squamous Epithelial Cells Occ/LPF Urine Bacteria Moderate/HPF (0-FEW) Urine Hyaline Casts Few/HPF Urine Mucus Slight/LPF White Blood Count 7.0x10^3/uL (4.0-11.0) Red Blood Count 3.29x10^6/uL (3.50-5.40) Hemoglobin 9.8g/dL (12.0-15.5) Hematocrit 29.0% (36.0-47.0) Mean Corpuscular Volume 88fL (79-100) Mean Corpuscular Hemoglobin 30pg (25-35) Mean Corpuscular Hemoglobin Concent 34g/dL (31-37) Red Cell Distribution Width 19.8% (11.5-14.5) Platelet Count 263x10^3/uL (140-400) Neutrophils (%) (Auto) 70% (31-73) Lymphocytes (%) (Auto) 19% (24-48) Monocytes (%) (Auto) 9% (0-9) Eosinophils (%) (Auto) 2% (0-3) Basophils (%) (Auto) 0% (0-3) Neutrophils # (Auto) 4.9x10^3uL (1.8-7.7) Lymphocytes # (Auto) 1.3x10^3/uL (1.0-4.8) Monocytes # (Auto) 0.7x10^3/uL (0.0-1.1) Eosinophils # (Auto) 0.1x10^3/uL (0.0-0.7) Basophils # (Auto) 0.0x10^3/uL (0.0-0.2) Prothrombin Time 23.0SEC (11.7-14.0) Prothromb Time International Ratio 2.2 (0.8-1.1) Sodium Level 140mmol/L (136-145) Potassium Level 3.7mmol/L (3.5-5.1) Chloride Level 102mmol/L (98-107) Carbon Dioxide Level 35mmol/L (21-32) Anion Gap 3 (6-14) Blood Urea Nitrogen 11mg/dL (7-20) Creatinine 0.6mg/dL (0.6-1.0) Estimated GFR (Cockcroft-Gault) 98.5 BUN/Creatinine Ratio 18 (6-20) Glucose Level 106mg/dL (70-99) Calcium Level 8.0mg/dL (8.5-10.1) Total Bilirubin 0.4mg/dL (0.2-1.0) Aspartate Amino Transf (AST/SGOT) 22U/L (15-37) Alanine Aminotransferase (ALT/SGPT) 13U/L (14-59) Alkaline Phosphatase 43U/L (46-116) Total Protein 6.0g/dL (6.4-8.2) Albumin 2.5g/dL (3.4-5.0) Albumin/Globulin Ratio 0.7 (1.0-1.7) Physical Exam Physical Exam lethargic chest- clear abd- soft non tender today Assessment Assessment Ileus- post op and narcotic related Nausea- secondary to ileus and meds- improved Anemia- no overt GI bleeding- likely tissue loss- monitor Problems: Plan Plan Prn Relistor if constipation/ileus recurs- Chronic constipation- likely opioid related outpt MOVANTIK would be a consideration as well PROMISE ZIMMER MD May 18, 2016 13:47
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
[2016-05-18] MEDS ORDERED: WARFARIN 1 MG TABLET. PO ONE (16:00)
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
[2016-05-18] MEDS: HYDROCODONE/APAP 5/325MG TABLET. PO PRN (17:16)
[2016-05-18] MEDS: NON FORMULARY ITEM (Teriparatide (Forteo) 20 MCG) SQ SCH (21:00)
[2016-05-18] MEDS: ATORVASTATIN CALCIUM 10 MG TABLET. PO SCH (21:05)
[2016-05-18] MEDS: traZODone 100 MG TABLET. PO SCH (21:06)
[2016-05-18] MEDS: QUEtiapine 50 MG TAB.ER.24H. PO SCH (21:06)
[2016-05-19 03:17] VITALS: BP 114/69
[2016-05-19] MEDS: HYDROCODONE/APAP 7.5/325MG TABLET. PO PRN ×5 (04:40→22:47)
[2016-05-19 04:47] LABS: INR 2.2 (0.8-1.1); PROTHROMBIN TIME PATIENT 23.3 SEC (11.7-14.0)
[2016-05-19 04:49] LABS: BASO % 1 % (0-3); EOS % 5 % (0-3); HEMATOCRIT 29.3 % (36.0-47.0); HEMOGLOBIN 9.9 g/dL (12.0-15.5); LYMPH # 1.4 x10^3/uL (1.0-4.8); LYMPH % 18 % (24-48); MEAN CORPUSCULAR HEMOGLOBIN 30 pg (25-35); MEAN CORPUSCULAR HGB CONC 34 g/dL (31-37); MEAN CORPUSCULAR VOLUME 89 fL (79-100); MONO % 11 % (0-9); NEUT % 66 % (31-73); PLATELET COUNT 305 x10^3/uL (140-400); RED CELL DISTRIBUTION WIDTH 19.3 % (11.5-14.5); WHITE BLOOD COUNT 7.7 x10^3/uL (4.0-11.0)
[2016-05-19 05:04] LABS: CALCIUM 8.2 mg/dL (8.5-10.1); CREATININE 0.6 mg/dL (0.6-1.0); GFR 98.5; POTASSIUM 3.8 mmol/L (3.5-5.1)
[2016-05-19] MEDS: PANTOPRAZOLE 40 MG TABLET. PO SCH (06:11)
[2016-05-19] MEDS: LEVOTHYROXINE 50 MCG TABLET PO SCH (06:11)
[2016-05-19 07:00] VITALS: BP 141/79
[2016-05-19] MEDS: IPRATRPIUM/ALBUTEROL 0.5/2.5MG 3 ML NEBU. NEB SCH ×4 (07:18→20:38)
[2016-05-19] MEDS: BUDESONIDE 0.5 MG/2 ML NEBU NEB SCH ×2 (07:18→20:38)
[2016-05-19] MEDS: DICYCLOMINE HCL 10 MG CAPSULE PO SCH ×4 (08:54→22:23)
[2016-05-19] MEDS: GUAIFENESIN 200 MG/10 ML LIQUID. PO SCH ×3 (08:54→22:24)
[2016-05-19] MEDS: NON FORMULARY ITEM (Dextroamphetamine/Amphetamine (Adderall Xr 30 Mg Capsule) 1 CAP) PO SCH (08:54)
[2016-05-19] MEDS: POLYETHYLENE GLYCOL 3350 17 GM PACKET. PO SCH ×2 (08:54→22:24)
[2016-05-19] MEDS: MULTIVITAMIN with MINERAL TABLET. PO SCH (08:55)
[2016-05-19] MEDS: DOCUSATE SODIUM 100 MG CAPSULE PO SCH ×2 (08:55→22:23)
[2016-05-19] MEDS: ALPRAZOLAM 0.5 MG TABLET PO SCH ×3 (08:55→22:24)
[2016-05-19] MEDS: ARIPIPRAZOLE 5 MG TABLET. PO SCH (08:56)
[2016-05-19] MEDS: ESCITALOPRAM 10 MG TABLET. PO SCH (08:56)
[2016-05-19] MEDS: POTASSIUM CHLORIDE 10 MEQ TABLET.ER. PO SCH (08:56)
[2016-05-19] MEDS: CHOLECALCIFEROL (VITAMIN D3) 1,000 UNIT TABLET PO SCH (08:56)
[2016-05-19] MEDS: DULOXETINE HCL 30 MG CAPSULE.DR. PO SCH (08:56)
[2016-05-19] MEDS: SENNOSIDES/DOCUSATE 8.6/50MG TABLET. PO SCH (08:56)
[2016-05-19] MEDS: ROFLUMILAST 500 MCG TABLET. PO SCH (08:56)
[2016-05-19] MEDS: LIDOCAINE (700MG/PATCH) PATCH. TD SCH (08:57)
[2016-05-19] MEDS: IV 1/2 NORMAL SALINE 1,000 ML IV SCH ×2 (08:57→17:38)
--- NOTE | 2016-05-19 09:34 | PDOC ---
Subjective: Subjective: Doing okay. Note eating much but denies further n/v w/ full liquids. BM day before yesterday (?maybe yesterday). No abd pain or heartburn. Objective: Vital Signs: Vital Signs Date Time Temp Pulse Resp B/P Pulse Ox O2 Delivery O2 Flow Rate FiO2 05/19/16 07:18 97 Nasal Cannula 3.0 05/19/16 07:00 97.7 94 18 141/79 97.7 Labs: Laboratory Tests Test 05/18/16 12:35 05/19/16 04:05 White Blood Count 7.0x10^3/uL 7.7x10^3/uL Red Blood Count 3.29x10^6/uL 3.30x10^6/uL Hemoglobin 9.8g/dL 9.9g/dL Hematocrit 29.0% 29.3% Mean Corpuscular Volume 88fL 89fL Mean Corpuscular Hemoglobin 30pg 30pg Mean Corpuscular Hemoglobin Concent 34g/dL 34g/dL Red Cell Distribution Width 19.8% 19.3% Platelet Count 263x10^3/uL 305x10^3/uL Neutrophils (%) (Auto) 70% 66% Lymphocytes (%) (Auto) 19% 18% Monocytes (%) (Auto) 9% 11% Eosinophils (%) (Auto) 2% 5% Basophils (%) (Auto) 0% 1% Neutrophils # (Auto) 4.9x10^3uL 5.1x10^3uL Lymphocytes # (Auto) 1.3x10^3/uL 1.4x10^3/uL Monocytes # (Auto) 0.7x10^3/uL 0.8x10^3/uL Eosinophils # (Auto) 0.1x10^3/uL 0.4x10^3/uL Basophils # (Auto) 0.0x10^3/uL 0.0x10^3/uL Prothrombin Time 23.0SEC 23.3SEC Prothromb Time International Ratio 2.2 2.2 Sodium Level 140mmol/L 144mmol/L Potassium Level 3.7mmol/L 3.8mmol/L Chloride Level 102mmol/L 107mmol/L Carbon Dioxide Level 35mmol/L 35mmol/L Anion Gap 3 2 Blood Urea Nitrogen 11mg/dL 9mg/dL Creatinine 0.6mg/dL 0.6mg/dL Estimated GFR (Cockcroft-Gault) 98.5 98.5 BUN/Creatinine Ratio 18 Glucose Level 106mg/dL 92mg/dL Calcium Level 8.0mg/dL 8.2mg/dL Total Bilirubin 0.4mg/dL Aspartate Amino Transf (AST/SGOT) 22U/L Alanine Aminotransferase (ALT/SGPT) 13U/L Alkaline Phosphatase 43U/L Total Protein 6.0g/dL Albumin 2.5g/dL Albumin/Globulin Ratio 0.7 PE: GEN: NAD LUNGS: clear anteriorly HEART: RRR ABD: NABS, S/ND/NT NEURO/PSYCH: A & O 3 OTHER: chest wall tenderness A/P: Post-op ileus w/ n/v, diarrhea -h/o chronic constipation, narcotic use -on Miralax, Colace -full liquid diet, not much appetite GERD -on PPI -- Seems improving. Continue same per GI. ISHA YOUNGBLOOD May 19, 2016 09:34
[2016-05-19 11:00] VITALS: BP 141/80
--- NOTE | 2016-05-19 14:11 | PDOC ---
SUBJECTIVE Subjective During operation patient was given 25 mcg fentanyl. In the omnicell only 25 mcg was wasted in error. 75 mcg of fentanyl was suppose to be wasted. OBJECTIVE Vital Signs Vital Signs Date Time Temp Pulse Resp B/P Pulse Ox O2 Delivery O2 Flow Rate FiO2 05/19/16 11:48 Nasal Cannula 3.0 05/19/16 11:00 98.6 96 18 141/80 95 Nasal Cannula 3.0 98.6 05/19/16 08:00 Nasal Cannula 3.0 05/19/16 07:18 97 Nasal Cannula 3.0 05/19/16 07:00 97.7 94 18 141/79 95 Nasal Cannula 3.0 97.7 05/19/16 03:17 97.9 94 18 114/69 98 Nasal Cannula 3.0 97.9 05/18/16 23:32 98.1 98 18 125/59 97 Nasal Cannula 3.0 98.1 05/18/16 20:04 93 Nasal Cannula 3.0 05/18/16 20:04 93 Nasal Cannula 3.0 05/18/16 20:00 Nasal Cannula 3.0 05/18/16 19:00 98.6 104 18 155/90 90 Nasal Cannula 3.0 98.6 05/18/16 15:17 91 Nasal Cannula 3.0 05/18/16 15:00 98.3 97 20 132/64 92 Nasal Cannula 3.0 98.3 I & O Intake and Output 05/19/16 07:00 Intake Total 200 ml Balance 200 ml Intake Oral 200 ml # Voids 5 COMMENT Lab Laboratory Tests Test 05/19/16 04:05 White Blood Count 7.7x10^3/uL (4.0-11.0) Red Blood Count 3.30x10^6/uL (3.50-5.40) Hemoglobin 9.9g/dL (12.0-15.5) Hematocrit 29.3% (36.0-47.0) Mean Corpuscular Volume 89fL (79-100) Mean Corpuscular Hemoglobin 30pg (25-35) Mean Corpuscular Hemoglobin Concent 34g/dL (31-37) Red Cell Distribution Width 19.3% (11.5-14.5) Platelet Count 305x10^3/uL (140-400) Neutrophils (%) (Auto) 66% (31-73) Lymphocytes (%) (Auto) 18% (24-48) Monocytes (%) (Auto) 11% (0-9) Eosinophils (%) (Auto) 5% (0-3) Basophils (%) (Auto) 1% (0-3) Neutrophils # (Auto) 5.1x10^3uL (1.8-7.7) Lymphocytes # (Auto) 1.4x10^3/uL (1.0-4.8) Monocytes # (Auto) 0.8x10^3/uL (0.0-1.1) Eosinophils # (Auto) 0.4x10^3/uL (0.0-0.7) Basophils # (Auto) 0.0x10^3/uL (0.0-0.2) Prothrombin Time 23.3SEC (11.7-14.0) Prothromb Time International Ratio 2.2 (0.8-1.1) Sodium Level 144mmol/L (136-145) Potassium Level 3.8mmol/L (3.5-5.1) Chloride Level 107mmol/L (98-107) Carbon Dioxide Level 35mmol/L (21-32) Anion Gap 2 (6-14) Blood Urea Nitrogen 9mg/dL (7-20) Creatinine 0.6mg/dL (0.6-1.0) Estimated GFR (Cockcroft-Gault) 98.5 Glucose Level 92mg/dL (70-99) Calcium Level 8.2mg/dL (8.5-10.1) EDWIGE GROVE CRNA May 19, 2016 14:11
--- NOTE | 2016-05-19 14:56 | PDOC ---
PROGRESS NOTES Subjective Subjective Problems overnight: Doing much better today than yesterday Objective Vital Signs Vital Signs Date Time Temp Pulse Resp B/P Pulse Ox O2 Delivery O2 Flow Rate FiO2 05/19/16 11:48 Nasal Cannula 3.0 05/19/16 11:00 98.6 96 18 141/80 95 98.6 Physical Exam On exam left short leg cast is well fitting her dressing is clean and dry but wants to peel off posteriorly on the right lower extremity I suggested to the nurse placement of a compression hose she is able to wiggle her toes sensation is intact distal neurovascular status otherwise intact Labs Laboratory Tests Test 05/18/16 07:00 05/18/16 12:35 05/19/16 04:05 Urine Collection Type Unknown Urine Color Yellow Urine Clarity Clear Urine pH 7.0 Urine Specific [place] 1.015 Urine Protein Negativemg/dL (NEG-TRACE) Urine Glucose (UA) Negativemg/dL (NEG) Urine Ketones (Stick) 15mg/dL (NEG) Urine Blood Negative (NEG) Urine Nitrite Negative (NEG) Urine Bilirubin Negative (NEG) Urine Urobilinogen Dipstick 0.2mg/dL (0.2 mg/dL) Urine Leukocyte Esterase Negative (NEG) Urine RBC Rare/HPF (0-2) Urine WBC 1-4/HPF (0-4) Urine Squamous Epithelial Cells Occ/LPF Urine Bacteria Moderate/HPF (0-FEW) Urine Hyaline Casts Few/HPF Urine Mucus Slight/LPF White Blood Count 7.0x10^3/uL (4.0-11.0) 7.7x10^3/uL (4.0-11.0) Red Blood Count 3.29x10^6/uL (3.50-5.40) 3.30x10^6/uL (3.50-5.40) Hemoglobin 9.8g/dL (12.0-15.5) 9.9g/dL (12.0-15.5) Hematocrit 29.0% (36.0-47.0) 29.3% (36.0-47.0) Mean Corpuscular Volume 88fL (79-100) 89fL (79-100) Mean Corpuscular Hemoglobin 30pg (25-35) 30pg (25-35) Mean Corpuscular Hemoglobin Concent 34g/dL (31-37) 34g/dL (31-37) Red Cell Distribution Width 19.8% (11.5-14.5) 19.3% (11.5-14.5) Platelet Count 263x10^3/uL (140-400) 305x10^3/uL (140-400) Neutrophils (%) (Auto) 70% (31-73) 66% (31-73) Lymphocytes (%) (Auto) 19% (24-48) 18% (24-48) Monocytes (%) (Auto) 9% (0-9) 11% (0-9) Eosinophils (%) (Auto) 2% (0-3) 5% (0-3) Basophils (%) (Auto) 0% (0-3) 1% (0-3) Neutrophils # (Auto) 4.9x10^3uL (1.8-7.7) 5.1x10^3uL (1.8-7.7) Lymphocytes # (Auto) 1.3x10^3/uL (1.0-4.8) 1.4x10^3/uL (1.0-4.8) Monocytes # (Auto) 0.7x10^3/uL (0.0-1.1) 0.8x10^3/uL (0.0-1.1) Eosinophils # (Auto) 0.1x10^3/uL (0.0-0.7) 0.4x10^3/uL (0.0-0.7) Basophils # (Auto) 0.0x10^3/uL (0.0-0.2) 0.0x10^3/uL (0.0-0.2) Prothrombin Time 23.0SEC (11.7-14.0) 23.3SEC (11.7-14.0) Prothromb Time International Ratio 2.2 (0.8-1.1) 2.2 (0.8-1.1) Sodium Level 140mmol/L (136-145) 144mmol/L (136-145) Potassium Level 3.7mmol/L (3.5-5.1) 3.8mmol/L (3.5-5.1) Chloride Level 102mmol/L (98-107) 107mmol/L (98-107) Carbon Dioxide Level 35mmol/L (21-32) 35mmol/L (21-32) Anion Gap 3 (6-14) 2 (6-14) Blood Urea Nitrogen 11mg/dL (7-20) 9mg/dL (7-20) Creatinine 0.6mg/dL (0.6-1.0) 0.6mg/dL (0.6-1.0) Estimated GFR (Cockcroft-Gault) 98.5 98.5 BUN/Creatinine Ratio 18 (6-20) Glucose Level 106mg/dL (70-99) 92mg/dL (70-99) Calcium Level 8.0mg/dL (8.5-10.1) 8.2mg/dL (8.5-10.1) Total Bilirubin 0.4mg/dL (0.2-1.0) Aspartate Amino Transf (AST/SGOT) 22U/L (15-37) Alanine Aminotransferase (ALT/SGPT) 13U/L (14-59) Alkaline Phosphatase 43U/L (46-116) Total Protein 6.0g/dL (6.4-8.2) Albumin 2.5g/dL (3.4-5.0) Albumin/Globulin Ratio 0.7 (1.0-1.7) Laboratory Tests Test 05/19/16 04:05 White Blood Count 7.7x10^3/uL (4.0-11.0) Red Blood Count 3.30x10^6/uL (3.50-5.40) Hemoglobin 9.9g/dL (12.0-15.5) Hematocrit 29.3% (36.0-47.0) Mean Corpuscular Volume 89fL (79-100) Mean Corpuscular Hemoglobin 30pg (25-35) Mean Corpuscular Hemoglobin Concent 34g/dL (31-37) Red Cell Distribution Width 19.3% (11.5-14.5) Platelet Count 305x10^3/uL (140-400) Neutrophils (%) (Auto) 66% (31-73) Lymphocytes (%) (Auto) 18% (24-48) Monocytes (%) (Auto) 11% (0-9) Eosinophils (%) (Auto) 5% (0-3) Basophils (%) (Auto) 1% (0-3) Neutrophils # (Auto) 5.1x10^3uL (1.8-7.7) Lymphocytes # (Auto) 1.4x10^3/uL (1.0-4.8) Monocytes # (Auto) 0.8x10^3/uL (0.0-1.1) Eosinophils # (Auto) 0.4x10^3/uL (0.0-0.7) Basophils # (Auto) 0.0x10^3/uL (0.0-0.2) Prothrombin Time 23.3SEC (11.7-14.0) Prothromb Time International Ratio 2.2 (0.8-1.1) Sodium Level 144mmol/L (136-145) Potassium Level 3.8mmol/L (3.5-5.1) Chloride Level 107mmol/L (98-107) Carbon Dioxide Level 35mmol/L (21-32) Anion Gap 2 (6-14) Blood Urea Nitrogen 9mg/dL (7-20) Creatinine 0.6mg/dL (0.6-1.0) Estimated GFR (Cockcroft-Gault) 98.5 Glucose Level 92mg/dL (70-99) Calcium Level 8.2mg/dL (8.5-10.1) Assessment Assessment POD# [], S/P [ORIF tibial pilon fracture on right and closed reduction pinning of a talonavicular dislocation on the left] Problems: Plan Plan of Care Strict nonweightbearing on right with gentle range of motion right ankle only, partial weightbearing on left for transfers only Compression hose on right to help control swelling and keep dressing in place Placement Follow-up 10-14 days for wound check on right leg ONDINA FIELD MD May 19, 2016 14:55
[2016-05-19 15:00] VITALS: BP 144/93
[2016-05-19] MEDS ORDERED: WARFARIN 2 MG TABLET. PO ONE (16:00)
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
[2016-05-19 19:00] VITALS: BP 141/83
[2016-05-19] MEDS: traZODone 100 MG TABLET. PO SCH (22:23)
[2016-05-19] MEDS: ATORVASTATIN CALCIUM 10 MG TABLET. PO SCH (22:23)
[2016-05-19] MEDS: QUEtiapine 50 MG TAB.ER.24H. PO SCH (22:24)
[2016-05-19] MEDS: NON FORMULARY ITEM (Teriparatide (Forteo) 20 MCG) SQ SCH (22:25)
[2016-05-19 23:25] VITALS: BP 132/82
[2016-05-20] MEDS: ALBUTEROL SULFATE 2.5 MG/3 ML NEBU. NEB PRN (02:03)
[2016-05-20 03:40] VITALS: BP 112/63
[2016-05-20] MEDS: IV 1/2 NORMAL SALINE 1,000 ML IV SCH ×2 (04:14→14:00)
[2016-05-20] MEDS: LEVOTHYROXINE 50 MCG TABLET PO SCH (06:34)
[2016-05-20] MEDS: HYDROCODONE/APAP 7.5/325MG TABLET. PO PRN ×3 (06:34→13:59)
[2016-05-20] MEDS: PANTOPRAZOLE 40 MG TABLET. PO SCH (06:34)
[2016-05-20] MEDS: IPRATRPIUM/ALBUTEROL 0.5/2.5MG 3 ML NEBU. NEB SCH ×2 (06:49→11:35)
[2016-05-20] MEDS: BUDESONIDE 0.5 MG/2 ML NEBU NEB SCH (06:49)
[2016-05-20 07:03] LABS: INR 2.5 (0.8-1.1); PROTHROMBIN TIME PATIENT 25.6 SEC (11.7-14.0)
[2016-05-20 07:35] VITALS: BP 107/67
[2016-05-20] MEDS: POLYETHYLENE GLYCOL 3350 17 GM PACKET. PO SCH (09:00)
[2016-05-20] MEDS: ESCITALOPRAM 10 MG TABLET. PO SCH (09:00)
--- NOTE | 2016-05-20 09:12 | PDOC ---
ORTHO PROGRESS NOTES Subjective Her pain is tolerable at rest. She complains of some pain with breathing over her left anterior and lateral chest wall.. Vitals Vital Signs Date Time Temp Pulse Resp B/P Pulse Ox O2 Delivery O2 Flow Rate FiO2 05/20/16 07:35 98.1 96 20 107/67 95 Nasal Cannula 3.0 98.1 Labs Laboratory Tests Test 05/18/16 12:35 05/19/16 04:05 05/20/16 06:20 White Blood Count 7.0x10^3/uL (4.0-11.0) 7.7x10^3/uL (4.0-11.0) Red Blood Count 3.29x10^6/uL (3.50-5.40) 3.30x10^6/uL (3.50-5.40) Hemoglobin 9.8g/dL (12.0-15.5) 9.9g/dL (12.0-15.5) Hematocrit 29.0% (36.0-47.0) 29.3% (36.0-47.0) Mean Corpuscular Volume 88fL (79-100) 89fL (79-100) Mean Corpuscular Hemoglobin 30pg (25-35) 30pg (25-35) Mean Corpuscular Hemoglobin Concent 34g/dL (31-37) 34g/dL (31-37) Red Cell Distribution Width 19.8% (11.5-14.5) 19.3% (11.5-14.5) Platelet Count 263x10^3/uL (140-400) 305x10^3/uL (140-400) Neutrophils (%) (Auto) 70% (31-73) 66% (31-73) Lymphocytes (%) (Auto) 19% (24-48) 18% (24-48) Monocytes (%) (Auto) 9% (0-9) 11% (0-9) Eosinophils (%) (Auto) 2% (0-3) 5% (0-3) Basophils (%) (Auto) 0% (0-3) 1% (0-3) Neutrophils # (Auto) 4.9x10^3uL (1.8-7.7) 5.1x10^3uL (1.8-7.7) Lymphocytes # (Auto) 1.3x10^3/uL (1.0-4.8) 1.4x10^3/uL (1.0-4.8) Monocytes # (Auto) 0.7x10^3/uL (0.0-1.1) 0.8x10^3/uL (0.0-1.1) Eosinophils # (Auto) 0.1x10^3/uL (0.0-0.7) 0.4x10^3/uL (0.0-0.7) Basophils # (Auto) 0.0x10^3/uL (0.0-0.2) 0.0x10^3/uL (0.0-0.2) Prothrombin Time 23.0SEC (11.7-14.0) 23.3SEC (11.7-14.0) 25.6SEC (11.7-14.0) Prothromb Time International Ratio 2.2 (0.8-1.1) 2.2 (0.8-1.1) 2.5 (0.8-1.1) Sodium Level 140mmol/L (136-145) 144mmol/L (136-145) Potassium Level 3.7mmol/L (3.5-5.1) 3.8mmol/L (3.5-5.1) Chloride Level 102mmol/L (98-107) 107mmol/L (98-107) Carbon Dioxide Level 35mmol/L (21-32) 35mmol/L (21-32) Anion Gap 3 (6-14) 2 (6-14) Blood Urea Nitrogen 11mg/dL (7-20) 9mg/dL (7-20) Creatinine 0.6mg/dL (0.6-1.0) 0.6mg/dL (0.6-1.0) Estimated GFR (Cockcroft-Gault) 98.5 98.5 BUN/Creatinine Ratio 18 (6-20) Glucose Level 106mg/dL (70-99) 92mg/dL (70-99) Calcium Level 8.0mg/dL (8.5-10.1) 8.2mg/dL (8.5-10.1) Total Bilirubin 0.4mg/dL (0.2-1.0) Aspartate Amino Transf (AST/SGOT) 22U/L (15-37) Alanine Aminotransferase (ALT/SGPT) 13U/L (14-59) Alkaline Phosphatase 43U/L (46-116) Total Protein 6.0g/dL (6.4-8.2) Albumin 2.5g/dL (3.4-5.0) Albumin/Globulin Ratio 0.7 (1.0-1.7) Laboratory Tests Test 05/20/16 06:20 Prothrombin Time 25.6SEC (11.7-14.0) Prothromb Time International Ratio 2.5 (0.8-1.1) Notes Examination of her bilateral lower extremities reveals the dressing is clean and dry and intact over her right medial ankle. She can wiggle her toes. Toes are warm. She has a cast in place to her left lower extremity. Visible forefoot is unremarkable. Assessment and Plan Okay to transfer from our standpoint. She should follow up with our nurse practitioner Mer[place] in 1-2 weeks VERONICA RAJPUT II, MD May 20, 2016 09:12
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
[2016-05-20] MEDS: NON FORMULARY ITEM (Dextroamphetamine/Amphetamine (Adderall Xr 30 Mg Capsule) 1 CAP) PO SCH (10:28)
[2016-05-20] MEDS: LIDOCAINE (700MG/PATCH) PATCH. TD SCH (10:28)
[2016-05-20] MEDS: DOCUSATE SODIUM 100 MG CAPSULE PO SCH (10:29)
[2016-05-20] MEDS: GUAIFENESIN 200 MG/10 ML LIQUID. PO SCH ×2 (10:29→13:59)
[2016-05-20] MEDS: DULOXETINE HCL 30 MG CAPSULE.DR. PO SCH (10:29)
[2016-05-20] MEDS: CHOLECALCIFEROL (VITAMIN D3) 1,000 UNIT TABLET PO SCH (10:29)
[2016-05-20] MEDS: DICYCLOMINE HCL 10 MG CAPSULE PO SCH ×2 (10:29→13:59)
[2016-05-20] MEDS: POTASSIUM CHLORIDE 10 MEQ TABLET.ER. PO SCH (10:29)
[2016-05-20] MEDS: SENNOSIDES/DOCUSATE 8.6/50MG TABLET. PO SCH (10:30)
[2016-05-20] MEDS: MULTIVITAMIN with MINERAL TABLET. PO SCH (10:30)
[2016-05-20] MEDS: ARIPIPRAZOLE 5 MG TABLET. PO SCH (10:30)
[2016-05-20] MEDS: ALPRAZOLAM 0.5 MG TABLET PO SCH ×2 (10:30→13:59)
[2016-05-20] MEDS: ROFLUMILAST 500 MCG TABLET. PO SCH (10:30)
[2016-05-20 10:43] VITALS: BP 142/83
[2016-05-20 11:22] LABS: HEMATOCRIT 27.6 % (36.0-47.0); HEMOGLOBIN 8.9 g/dL (12.0-15.5); RED BLOOD COUNT 3.01 x10^6/uL (3.50-5.40); WHITE BLOOD COUNT 6.7 x10^3/uL (4.0-11.0)
--- NOTE | 2016-05-20 11:37 | DISCH ---
DISCHARGE INSTRUCTIONS Condition on Discharge Condition on Discharge: Stable Activity After Discharge Activity Instructions for Disc: Activity as tolerated Diet after Discharge Diet after Discharge: Cardiac Contacting the [facility] after DC Call your doctor for: If your condition worsens Follow-Up Follow up with: Dr Cisse/ KAREN Blackwood in 10-14 days CHANTAL BOTELLO MD May 20, 2016 11:37
[2016-05-20] MEDS ORDERED: HYDR-2762 PO (11:47)
[2016-05-20] MEDS ORDERED: Warfarin Sodium MC (11:47)
[2016-05-20] MEDS ORDERED: WARF3TAB PO (11:47)
[2016-05-20] MEDS ORDERED: POLY17PO5 PO (11:47)
--- NOTE | 2016-05-20 12:43 | PDOC ---
Subjective: Subjective: Loose stool today so avoided Miralax. No abd pain. No n/v. Says DC plans today. Objective: Vital Signs: Vital Signs Date Time Temp Pulse Resp B/P Pulse Ox O2 Delivery O2 Flow Rate FiO2 05/20/16 10:43 98.6 98 22 142/83 95 Nasal Cannula 3.0 98.6 Labs: Laboratory Tests Test 05/20/16 06:20 White Blood Count 6.7x10^3/uL Red Blood Count 3.01x10^6/uL Hemoglobin 8.9g/dL Hematocrit 27.6% Mean Corpuscular Volume 92fL Mean Corpuscular Hemoglobin 30pg Mean Corpuscular Hemoglobin Concent 32g/dL Red Cell Distribution Width 19.0% Platelet Count 279x10^3/uL Prothrombin Time 25.6SEC Prothromb Time International Ratio 2.5 PE: GEN: NAD, up to chair eating lunch LUNGS: CTAB HEART: RRR ABD: NABS, S/ND/NT NEURO/PSYCH: A & O 3 A/P: Post-op ileus w/ n/v, diarrhea - improved -h/o chronic constipation, narcotic use, on Miralax -h/o GERD on PPI -- Improved. Would continue treatment for chronic constipation long-term. Continue PPI. ISHA YOUNGBLOOD May 20, 2016 12:43
[2016-05-20] MEDS ORDERED: WARFARIN 1 MG TABLET. PO ONE (16:00)
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
== END 2016-05-20 14:30 | DRG 492 ==
LOC: 4 NORTH 21:02
PROVIDERS: ADMIT Internal Medicine; ATTEND Internal Medicine
PROC: 0SS Lower Joints, Reposition (ICD-10-PCS; 2016-05-14)
PROC: 0QSG04Z Reposition Right Tibia with Internal Fixation Device, Open Approach (ICD-10-PCS; principal; 2016-05-14 16:00)
PROC: 30233N1 Transfusion of Nonautologous Red Blood Cells into Peripheral Vein, Percutaneous Approach (ICD-10-PCS; 2016-05-17)
DX: S82.871A Displaced pilon fracture of right tibia, initial encounter for closed fracture (principal); G92 Toxic encephalopathy; S22.32XA Fracture of one rib, left side, initial encounter for closed fracture; J96.11 Chronic respiratory failure with hypoxia; K56.7 Ileus, unspecified; E78.5 Hyperlipidemia, unspecified; E87.6 Hypokalemia; F32.9 Major depressive disorder, single episode, unspecified; I10 Essential (primary) hypertension; F41.9 Anxiety disorder, unspecified; J44.9 Chronic obstructive pulmonary disease, unspecified; G89.29 Other chronic pain; M54.9 Dorsalgia, unspecified; D64.9 Anemia, unspecified; K58.9 Irritable bowel syndrome, unspecified; K21.9 Gastro-esophageal reflux disease without esophagitis; K59.03 Drug induced constipation; S93.315A Dislocation of tarsal joint of left foot, initial encounter; T40.2X5A Adverse effect of other opioids, initial encounter; Z79.891 Long term (current) use of opiate analgesic; Z86.73 Personal history of transient ischemic attack (TIA), and cerebral infarction without residual deficits; Z87.891 Personal history of nicotine dependence; Z99.81 Dependence on supplemental oxygen; V49.88XA Car occupant (driver) (passenger) injured in other specified transport accidents, initial encounter; Y93.89 Activity, other specified; Y92.89 Other specified places as the place of occurrence of the external cause; Y99.8 Other external cause status
CPT/HCPCS: 36415; 36600; 71101; 74022; 76000; 80048; 80053; 81001; 82306; 82805; 83690; 83735; 84100; 85027; 85610; 86850; 86900; 86901; 86920; 87086; 87186; 93005; 94640; 94760; C1713; J0690; J1100; J1650; J2250; J2270; J2370; J2405; J2704; J2765; J3010; J3480; J3490; J7060; J7120; J7620; P9016; 97110; 97530; 97535

== ENCOUNTER 2016-06-02 12:53 | Inpatient (IN) | payer MEDICARE, OTHER ==
[~2016-06-02] VITALS: Ht 162.6 cm; Wt 57.0 kg
[2016-06-02] VITALS (8 sets, daily range): BP systolic 102–144; BP diastolic 44–88
[~2016-06-02 12:53] MED LIST changes: +ALPR1TAB2 PO; +ARIP5TAB6 PO; +BREO ELLIPTA 21 EACH IH; +CHOL10007 PO; +DULO60CA6 PO; +GUAI600T28 PO; +HYDR-2666 PO; +HYDR-2762 PO; +LEVO50TA PO; +LOSA1TAB17 PO; +LUTE1CAP3 PO; +MELA3TAB PO; +MELO-150 PO; +MIRT15TA3 PO; +OMEG300C PO; +POLY17PO5 PO; +POTA20TA82 PO; +QUET200T4 PO; +TERI2.4P SQ; +TRAZ100T12 PO; +UBID100C3 PO; +WARF3TAB PO; +Warfarin Sodium MC
[2016-06-02 14:32] LABS: HCO3 ABG 41 mmol/L (21-28); PH ABG 7.42 (7.35-7.45); PO2 ABG 68 mmHg (65-108); SAT O2 ABG 94 % (92-99)
--- NOTE | 2016-06-02 14:43 | PDOC ---
Provider Note Provider Note dictated REGAN SABILLON MD Jun 02, 2016 14:43
[2016-06-02] MEDS ORDERED: IOHEXOL 300 MG/ML 75 ML VIAL IV ONE (15:15)
[2016-06-02] MEDS: methylPREDNISolone SOD SUCC PF 40 MG/ML VIAL. IV SCH ×2 (15:16→21:13)
[2016-06-02] MEDS: CEFTRIAXONE SODIUM 1 GM in IV NORMAL SALINE 50ML 50 ML IV SCH (15:22)
[2016-06-02] MEDS ORDERED: CONTRAST GIVEN MC PRN (15:30)
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
[2016-06-02] MEDS ORDERED: BENZONATATE 100 MG CAPSULE. PO PRN ×2 (15:45→21:00)
[2016-06-02] MEDS: ASPIRIN ENTERIC COATED 81 MG TABLET.DR. PO SCH (16:00)
[2016-06-02] MEDS: ARIPIPRAZOLE 5 MG TABLET. PO SCH (16:00)
[2016-06-02] MEDS: IPRATRPIUM/ALBUTEROL 0.5/2.5MG 3 ML NEBU. NEB SCH ×2 (16:28→20:07)
[2016-06-02 16:41] LABS: FIO2 ABG 28; PCO2 ABG 65 mmHg (35-46)
--- NOTE | 2016-06-02 16:45 | RAD ---
EXAM: CT angiogram of the chest with intravenous contrast. HISTORY: Hypoxemia. TECHNIQUE: Computed tomographic images of the chest were obtained following the administration of 75 cc Omnipaque 300 intravenous contrast. Three-dimensional maximum intensity projection images were obtained. One or more of the following individualized dose reduction techniques were utilized for this examination: 1. Automated exposure control. 2. Adjustment of the mA and/or kV according to patient size. 3. Use of iterative reconstruction technique. COMPARISON: 09/26/2011. FINDINGS: There is no pulmonary artery filling defect to suggest pulmonary embolism, with limited evaluation of the segmental and subsegmental pulmonary arteries due to suboptimal contrast opacification and respiratory motion. There is an ectatic ascending aorta. No aortic dissection is seen. The heart is normal in size. There are prominent mediastinal and hilar lymph nodes. For reference purposes, there is a 1.7 cm aortopulmonary window lymph node and 2.4 cm right hilar lymph node. There are a few calcified granulomas. There is moderate emphysema. There is slight upper lobe predominant groundglass opacity with septal line thickening. There is slight right lower lobe bronchial wall thickening with a few suspected small mucous plugs. There is right posterior dependent and basilar atelectasis. There is left basilar scarring. Evaluation for small nodules is limited given respiratory motion. However, there are a few 3 and 4 mm nodules within the right lower lobe. There is scarring along the left pleural fissure. There is common bile duct dilatation, partially included on the [id number]. There is suspected cholelithiasis. There are a few left renal cysts. There is degenerative change throughout the thoracic spine. There are subacute left anterior second, third, fourth and fifth rib fractures, some of which demonstrate slight surrounding callus formation. IMPRESSION: 1. No evidence of pulmonary embolism, with limited evaluation of the segmental and subsegmental pulmonary arteries due to suboptimal contrast opacification and respiratory motion. 2. Subacute left second, third, fourth and fifth rib fractures. 3. Moderate emphysema. 4. Tiny nodular opacities within the right lower lobe measuring 3 and 4 mm. Follow-up can be performed according to Fleischner Society criteria. 5. Slight groundglass opacity and septal line thickening within the upper lobes possibly due to trace congestion. 6. Prominent mediastinal and right hilar lymph nodes, similar compared to the prior CT. The long-term stability favors benignity. 7. Suspected cholelithiasis. There is common bile duct dilatation which extends beyond the [id number]. 8. Small left renal cysts. Note is made that a previously demonstrated left hepatic cyst is not well seen on this exam due to differences in timing of contrast ministration.
[2016-06-02] MEDS: DICYCLOMINE HCL 10 MG CAPSULE PO SCH ×2 (16:52→20:20)
[2016-06-02] MEDS: POTASSIUM CL 20MEQ-0.45% NACL 1,000 ML IV SCH (16:59)
[2016-06-02 17:00] LABS: INR 3.5 (0.8-1.1); PROTHROMBIN TIME PATIENT 33.6 SEC (11.7-14.0)
[2016-06-02] MEDS: ALPRAZOLAM 1 MG TABLET PO SCH ×2 (17:00→21:05)
[2016-06-02] MEDS ORDERED: NON FORMULARY ITEM (Albuterol Sulfate (Albuterol Sulfate Neb Soln) 1 VIAL) NEB SCH (17:00)
[2016-06-02] MEDS: ALBUTEROL SULFATE 2.5 MG/3 ML NEBU. NEB SCH ×2 (17:00→21:00)
[2016-06-02 17:10] LABS: CALCIUM 8.8 mg/dL (8.5-10.1); CREATININE 0.7 mg/dL (0.6-1.0); GFR 82.5; POTASSIUM 3.1 mmol/L (3.5-5.1)
[2016-06-02] MEDS: OXYCODONE IR 5 MG TABLET. PO PRN (18:19)
[2016-06-02] MEDS ORDERED: IPRATRPIUM/ALBUTEROL 0.5/2.5MG 3 ML NEBU. NEB SCH (20:00)
[2016-06-02] MEDS: BUDESONIDE 0.5 MG/2 ML NEBU. NEB SCH (20:07)
[2016-06-02] MEDS: MIRTAZAPINE 15 MG TABLET PO SCH (20:19)
[2016-06-02] MEDS: ATORVASTATIN CALCIUM 10 MG TABLET. PO SCH (20:19)
[2016-06-02] MEDS: QUEtiapine 100 MG TABLET. PO SCH (20:20)
[2016-06-02] MEDS: GUAIFENESIN ER 600 MG TABLET.ER PO SCH (20:20)
[2016-06-02] MEDS: POTASSIUM CHLORIDE 20 MEQ TABLET.ER. PO SCH (20:20)
[2016-06-02] MEDS ORDERED: NON FORMULARY ITEM (Fluticasone/Salmeterol (Advair 250-50 Diskus) 1 PUFF) INH SCH (21:00)
[2016-06-02] MEDS ORDERED: POLYETHYLENE GLYCOL 3350 17 GM PACKET. PO SCH (21:00)
[2016-06-02] MEDS ORDERED: BENZONATATE 100 MG CAPSULE. PO SCH (21:00)
[2016-06-02] MEDS ORDERED: NON FORMULARY ITEM (Melatonin 10 MG) PO SCH (21:00)
[2016-06-02] MEDS ORDERED: ALPRAZOLAM 1 MG TABLET ONE (21:02)
[2016-06-02] MEDS: BENZONATATE 100 MG CAPSULE. PO SCH (21:05)
[2016-06-02] MEDS: MAGNESIUM HYDROXIDE 2,400 MG/30 ML ORAL.SUSP. PO PRN (21:06)
[2016-06-02] MEDS: SENNOSIDES/DOCUSATE 8.6/50MG TABLET. PO PRN (21:06)
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
[2016-06-03 02:52] VITALS: BP 115/62
[2016-06-03] MEDS: POTASSIUM CL 20MEQ-0.45% NACL 1,000 ML IV SCH ×2 (03:20→11:15)
[2016-06-03 04:17] LABS: BASO % 0 % (0-3); EOS % 0 % (0-3); HEMOGLOBIN 10.7 g/dL (12.0-15.5); LYMPH # 0.9 x10^3/uL (1.0-4.8); LYMPH % 14 % (24-48); MEAN CORPUSCULAR HEMOGLOBIN 30 pg (25-35); MEAN CORPUSCULAR HGB CONC 33 g/dL (31-37); MEAN CORPUSCULAR VOLUME 89 fL (79-100); MONO % 6 % (0-9); NEUT % 79 % (31-73); PLATELET COUNT 469 x10^3/uL (140-400); RED CELL DISTRIBUTION WIDTH 18.2 % (11.5-14.5); WHITE BLOOD COUNT 6.3 x10^3/uL (4.0-11.0)
[2016-06-03 04:25] LABS: INR 3.5 (0.8-1.1); PROTHROMBIN TIME PATIENT 32.9 SEC (11.7-14.0)
[2016-06-03] MEDS: methylPREDNISolone SOD SUCC PF 40 MG/ML VIAL. IV SCH ×3 (06:20→21:26)
[2016-06-03] MEDS: OXYCODONE IR 5 MG TABLET. PO PRN ×3 (07:17→23:13)
[2016-06-03 07:48] VITALS: BP 161/94
[2016-06-03] MEDS ORDERED: ALPRAZOLAM 1 MG TABLET ONE (08:27)
[2016-06-03] MEDS: DICYCLOMINE HCL 10 MG CAPSULE PO SCH ×4 (08:39→21:24)
[2016-06-03] MEDS: POTASSIUM CHLORIDE 20 MEQ TABLET.ER. PO SCH ×2 (08:39→21:25)
[2016-06-03] MEDS: BENZONATATE 100 MG CAPSULE. PO SCH ×2 (08:40→21:25)
[2016-06-03] MEDS: ARIPIPRAZOLE 5 MG TABLET. PO SCH (08:40)
[2016-06-03] MEDS: GUAIFENESIN ER 600 MG TABLET.ER PO SCH ×2 (08:40→21:25)
[2016-06-03] MEDS: MELOXICAM 7.5 MG TABLET PO SCH (08:40)
[2016-06-03] MEDS: LOSARTAN POTASSIUM 50 MG TABLET. PO SCH (08:42)
[2016-06-03] MEDS: PANTOPRAZOLE 40 MG TABLET. PO SCH (08:42)
[2016-06-03] MEDS: SENNOSIDES/DOCUSATE 8.6/50MG TABLET. PO PRN (08:43)
[2016-06-03] MEDS: ALPRAZOLAM 1 MG TABLET PO SCH ×3 (08:43→21:24)
[2016-06-03] MEDS: HYDROCHLOROTHIAZIDE 25 MG TABLET PO SCH (08:43)
[2016-06-03] MEDS: ASPIRIN ENTERIC COATED 81 MG TABLET.DR. PO SCH (08:43)
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
[2016-06-03] MEDS ORDERED: NON FORMULARY ITEM (Tiotropium Bromide (Spiriva) 2 INH) IH SCH (09:00)
[2016-06-03] MEDS ORDERED: NON FORMULARY ITEM (Teriparatide (Forteo) 20 MCG) SQ SCH (09:00)
[2016-06-03] MEDS: ROFLUMILAST 500 MCG TABLET. PO SCH (09:00)
[2016-06-03] MEDS: ALBUTEROL SULFATE 2.5 MG/3 ML NEBU. NEB SCH ×4 (09:00→21:00)
[2016-06-03] MEDS: NON FORMULARY ITEM (Dextroamphetamine/Amphetamine (Adderall Xr 30 Mg Capsule) 1 CAP) PO SCH (09:00)
[2016-06-03] MEDS ORDERED: NON FORMULARY ITEM (Fluticasone/Vilanterol (Breo Ellipta 200-25 Mcg INH) 1 PUFF) IH SCH (09:00)
[2016-06-03] MEDS: BUDESONIDE 0.5 MG/2 ML NEBU. NEB SCH ×2 (10:05→20:04)
[2016-06-03] MEDS: IPRATRPIUM/ALBUTEROL 0.5/2.5MG 3 ML NEBU. NEB SCH ×4 (10:05→20:04)
[2016-06-03 10:46] VITALS: BP 138/92
[2016-06-03] MEDS: MAGNESIUM HYDROXIDE 2,400 MG/30 ML ORAL.SUSP. PO PRN ×3 (12:30→21:26)
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
[2016-06-03 14:21] VITALS: BP 108/80
[2016-06-03] MEDS ORDERED: MAGNESIUM CITRATE 296 ML SOLUTION. PO ONE (15:00)
[2016-06-03] MEDS: CEFTRIAXONE SODIUM 1 GM in IV NORMAL SALINE 50ML 50 ML IV SCH (15:07)
[2016-06-03] MEDS: DULOXETINE HCL 30 MG CAPSULE.DR. PO SCH (17:09)
[2016-06-03 19:00] VITALS: BP 112/72
[2016-06-03] MEDS: QUEtiapine 100 MG TABLET. PO SCH (21:24)
[2016-06-03] MEDS: traZODone 100 MG TABLET. PO SCH (21:25)
[2016-06-03] MEDS: MIRTAZAPINE 15 MG TABLET PO SCH (21:25)
[2016-06-03] MEDS: ATORVASTATIN CALCIUM 10 MG TABLET. PO SCH (21:25)
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
[2016-06-03 23:00] VITALS: BP 93/50
[2016-06-03] MEDS: NON FORMULARY ITEM (Teriparatide (Forteo) 20 MCG) SQ SCH (23:18)
[2016-06-04] MEDS: POTASSIUM CL 20MEQ-0.45% NACL 1,000 ML IV SCH ×3 (00:35→16:03)
[2016-06-04] MEDS ORDERED: SODIUM PHOSPHATES 19/7GM 133 ML ENEMA. PR ONE (01:00)
[2016-06-04] MEDS: methylPREDNISolone SOD SUCC PF 40 MG/ML VIAL. IV SCH ×3 (05:17→21:24)
[2016-06-04] MEDS: PANTOPRAZOLE 40 MG TABLET. PO SCH (05:22)
[2016-06-04 07:00] VITALS: BP 142/88
[2016-06-04] MEDS: IPRATRPIUM/ALBUTEROL 0.5/2.5MG 3 ML NEBU. NEB SCH ×4 (08:36→19:48)
[2016-06-04] MEDS: BUDESONIDE 0.5 MG/2 ML NEBU. NEB SCH ×2 (08:36→19:48)
[2016-06-04 08:47] LABS: INR 2.6 (0.8-1.1); PROTHROMBIN TIME PATIENT 26.1 SEC (11.7-14.0)
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
[2016-06-04] MEDS: NON FORMULARY ITEM (Dextroamphetamine/Amphetamine (Adderall Xr 30 Mg Capsule) 1 CAP) PO SCH (08:58)
[2016-06-04] MEDS: ARIPIPRAZOLE 5 MG TABLET. PO SCH (08:58)
[2016-06-04] MEDS: MELOXICAM 7.5 MG TABLET PO SCH (08:59)
[2016-06-04] MEDS: ROFLUMILAST 500 MCG TABLET. PO SCH (08:59)
[2016-06-04] MEDS: ALBUTEROL SULFATE 2.5 MG/3 ML NEBU. NEB SCH ×4 (09:00→21:00)
[2016-06-04] MEDS: DICYCLOMINE HCL 10 MG CAPSULE PO SCH ×4 (09:01→21:11)
[2016-06-04] MEDS: POTASSIUM CHLORIDE 20 MEQ TABLET.ER. PO SCH ×2 (09:01→21:11)
[2016-06-04] MEDS: ALPRAZOLAM 1 MG TABLET PO SCH ×3 (09:01→21:22)
[2016-06-04] MEDS: OXYCODONE IR 5 MG TABLET. PO PRN ×4 (09:01→21:22)
[2016-06-04] MEDS: HYDROCHLOROTHIAZIDE 25 MG TABLET PO SCH (09:02)
[2016-06-04] MEDS: LOSARTAN POTASSIUM 50 MG TABLET. PO SCH (09:02)
[2016-06-04] MEDS: ASPIRIN ENTERIC COATED 81 MG TABLET.DR. PO SCH (09:02)
[2016-06-04] MEDS: DULOXETINE HCL 30 MG CAPSULE.DR. PO SCH (09:02)
[2016-06-04] MEDS: GUAIFENESIN ER 600 MG TABLET.ER PO SCH ×2 (09:03→21:11)
[2016-06-04] MEDS: BENZONATATE 100 MG CAPSULE. PO SCH ×2 (09:05→21:12)
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
[2016-06-04 11:00] VITALS: BP 102/59
[2016-06-04 15:00] VITALS: BP 113/73
[2016-06-04] MEDS: CEFTRIAXONE SODIUM 1 GM in IV NORMAL SALINE 50ML 50 ML IV SCH (16:04)
[2016-06-04] MEDS ORDERED: WARFARIN 1 MG TABLET. PO ONE (17:00)
[2016-06-04 19:00] VITALS: BP 112/66
[2016-06-04] MEDS: NON FORMULARY ITEM (Teriparatide (Forteo) 20 MCG) SQ SCH (21:08)
[2016-06-04] MEDS: traZODone 100 MG TABLET. PO SCH (21:10)
[2016-06-04] MEDS: MIRTAZAPINE 15 MG TABLET PO SCH (21:11)
[2016-06-04] MEDS: ATORVASTATIN CALCIUM 10 MG TABLET. PO SCH (21:11)
[2016-06-04] MEDS: QUEtiapine 100 MG TABLET. PO SCH (21:12)
[2016-06-04 23:00] VITALS: BP 108/66
[2016-06-05 03:18] VITALS: BP 118/77
[2016-06-05 05:06] LABS: INR 1.7 (0.8-1.1); PROTHROMBIN TIME PATIENT 18.7 SEC (11.7-14.0)
[2016-06-05] MEDS: methylPREDNISolone SOD SUCC PF 40 MG/ML VIAL. IV SCH (06:14)
[2016-06-05] MEDS: POTASSIUM CL 20MEQ-0.45% NACL 1,000 ML IV SCH ×2 (06:14→13:15)
[2016-06-05 07:00] VITALS: BP 137/85
[2016-06-05] MEDS: PANTOPRAZOLE 40 MG TABLET. PO SCH (07:57)
[2016-06-05] MEDS: BUDESONIDE 0.5 MG/2 ML NEBU. NEB SCH (08:00)
[2016-06-05] MEDS: IPRATRPIUM/ALBUTEROL 0.5/2.5MG 3 ML NEBU. NEB SCH ×2 (08:00→11:54)
[2016-06-05] MEDS ORDERED: ASPIRIN ENTERIC COATED 81 MG TABLET.DR. PO SCH (08:00)
[2016-06-05] MEDS: DULOXETINE HCL 30 MG CAPSULE.DR. PO SCH (08:39)
[2016-06-05] MEDS: MELOXICAM 7.5 MG TABLET PO SCH (08:40)
[2016-06-05] MEDS: HYDROCHLOROTHIAZIDE 25 MG TABLET PO SCH (08:40)
[2016-06-05] MEDS: DICYCLOMINE HCL 10 MG CAPSULE PO SCH ×2 (08:40→13:16)
[2016-06-05 08:42] VITALS: BP 137/85
[2016-06-05] MEDS: ALPRAZOLAM 1 MG TABLET PO SCH ×2 (08:42→13:53)
[2016-06-05] MEDS: SENNOSIDES/DOCUSATE 8.6/50MG TABLET. PO PRN (08:42)
[2016-06-05] MEDS: LOSARTAN POTASSIUM 50 MG TABLET. PO SCH (08:42)
[2016-06-05] MEDS: GUAIFENESIN ER 600 MG TABLET.ER PO SCH (08:42)
[2016-06-05] MEDS: ROFLUMILAST 500 MCG TABLET. PO SCH (08:42)
[2016-06-05] MEDS: POTASSIUM CHLORIDE 20 MEQ TABLET.ER. PO SCH (08:42)
[2016-06-05] MEDS: NON FORMULARY ITEM (Dextroamphetamine/Amphetamine (Adderall Xr 30 Mg Capsule) 1 CAP) PO SCH (08:43)
[2016-06-05] MEDS: ARIPIPRAZOLE 5 MG TABLET. PO SCH (08:43)
[2016-06-05] MEDS: BENZONATATE 100 MG CAPSULE. PO SCH (08:43)
[2016-06-05] MEDS: OXYCODONE IR 5 MG TABLET. PO PRN ×2 (08:48→13:17)
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
[2016-06-05] MEDS ORDERED: WARFARIN 2 MG TABLET. PO ONE (16:00)
[2016-06-05] MEDS ORDERED: ATORVASTATIN CALCIUM 10 MG TABLET. PO SCH (21:00)
[2016-06-05] MEDS ORDERED: NON FORMULARY ITEM (Teriparatide (Forteo) 20 MCG) SQ SCH (21:00)
== END 2016-06-05 14:00 | DRG 189 ==
LOC: CVICU 13:51 → 5 NORTH 06-03 07:15
PROVIDERS: ADMIT Internal Medicine; ATTEND Internal Medicine
DX: J96.21 Acute and chronic respiratory failure with hypoxia (principal); J44.1 Chronic obstructive pulmonary disease with (acute) exacerbation; J44.0 Chronic obstructive pulmonary disease with (acute) lower respiratory infection; J20.9 Acute bronchitis, unspecified; E78.5 Hyperlipidemia, unspecified; F32.9 Major depressive disorder, single episode, unspecified; I10 Essential (primary) hypertension; K59.00 Constipation, unspecified; N28.1 Cyst of kidney, acquired; R79.1 Abnormal coagulation profile; F41.9 Anxiety disorder, unspecified; Z79.01 Long term (current) use of anticoagulants; Z86.73 Personal history of transient ischemic attack (TIA), and cerebral infarction without residual deficits; Z87.891 Personal history of nicotine dependence; Z99.81 Dependence on supplemental oxygen; Z91.040 Latex allergy status; Z88.8 Allergy status to other drugs, medicaments and biological substances; Z91.048 Other nonmedicinal substance allergy status
CPT/HCPCS: 36415; 36600; 71275; 80048; 82805; 83735; 85027; 85610; 87641; 94640; 94760; J0696; J2920; J7620; Q9967; 97110; 97530

== ENCOUNTER 2017-09-11 09:56 | Day surgery (SDC) | payer MEDICARE, OTHER ==
[~2017-09-11 09:56] MED LIST changes: -ALBU0.63 NEB; -ALPR1TAB2 PO; -AMOX1TAB11 PO; -ARIP5TAB6 PO; -ASPI-482 PO; -ATOR10TA60 PO; -BENZ100C PO; -BREO ELLIPTA 21 EACH IH; -BUPR200T2 PO; -CALC-178 PO; -CHOL10003 PO; -CHOL10007 PO; -DEXT30CA6 PO; -DICY20TA30 PO; -DULO60CA6 PO; -ESCI20TA10 PO; -FLUT1DIS IH; -FLUT1DIS3 INH; -GLUC1CAP48 PO; -GUAI100S2 PO; -GUAI600T28 PO; -HYDR-2666 PO; -HYDR-2762 PO; -LEVO50TA PO; -LEVO88TA2 PO; +LIDOCAINE 1% PF 2 ML VIAL. ID; -LORA-434 PO; -LOSA1TAB12 PO; -LOSA1TAB17 PO; -LUBI8CAP3 PO; -LUTE1CAP3 PO; -MELA3TAB PO; -MELO-150 PO; -MIRT15TA3 PO; +MORPHINE SULFATE 2 MG/ML DISP.SYRIN. IV; -MULT1TAB52 PO; -OMEG300C PO; +ONDANSETRON PF 4 MG/2 ML VIAL. IV; -PANT40TA5 PO; -POLY17PO5 PO; -POTA10CA PO; -POTA20TA82 PO; -PROAIR HFA8.5 GM IH; +PROCHLORPERAZINE 10 MG/2 ML VIAL. IV; -QUET150T PO; -QUET200T4 PO; -ROFL500T PO; -TERI2.4P SQ; -TIOT18CA IH; -TRAZ100T12 PO; -UBID100C3 PO; -WARF3TAB PO; -Warfarin Sodium MC; +fentaNYL PF VIAL 100 MCG/2 ML VIAL IV
[2017-09-11] MEDS ORDERED: fentaNYL PF VIAL 100 MCG/2 ML VIAL (10:30)
[2017-09-11] MEDS ORDERED: LIDOCAINE 2% PF Vial for OR 5 ML VIAL. (10:30)
[2017-09-11] MEDS ORDERED: ONDANSETRON PF 4 MG/2 ML VIAL. (10:30)
[2017-09-11] MEDS ORDERED: PROPOFOL 20 ML IV (10:30)
[2017-09-11] MEDS ORDERED: FAMOTIDINE 20 MG/2 ML VIAL (10:30)
[2017-09-11] MEDS ORDERED: PROPOFOL 50 ML IV (10:32)
[2017-09-11] MEDS: IV RINGERS,LACTATED 1000ML 1,000 ML IV (10:41)
[2017-09-11] MEDS: HYDROcodone/APAP 5/325MG 1 TAB TABLET PO (12:24)
[2017-09-11] MEDS: BUPIVACAINE 0.5% 50 ML VIAL. (14:07)
== END 2017-09-11 13:36 | disposition home or self-care (01) ==
LOC: SURG 09:56
DX: Z47.2 Encounter for removal of internal fixation device (principal); I10 Essential (primary) hypertension; J44.9 Chronic obstructive pulmonary disease, unspecified; Z86.73 Personal history of transient ischemic attack (TIA), and cerebral infarction without residual deficits; Z99.81 Dependence on supplemental oxygen; Z90.710 Acquired absence of both cervix and uterus; Z88.5 Allergy status to narcotic agent; Z79.899 Other long term (current) drug therapy; Z91.040 Latex allergy status; Z91.048 Other nonmedicinal substance allergy status; Z88.1 Allergy status to other antibiotic agents; Z98.49 Cataract extraction status, unspecified eye; Z96.1 Presence of intraocular lens; E78.00 Pure hypercholesterolemia, unspecified; K21.9 Gastro-esophageal reflux disease without esophagitis; Z90.721 Acquired absence of ovaries, unilateral; Z87.440 Personal history of urinary (tract) infections; F41.9 Anxiety disorder, unspecified; F32.9 Major depressive disorder, single episode, unspecified; M19.90 Unspecified osteoarthritis, unspecified site; Z72.89 Other problems related to lifestyle; Z87.891 Personal history of nicotine dependence; E03.9 Hypothyroidism, unspecified; Z98.890 Other specified postprocedural states
CPT/HCPCS: 20680; 76000; A7015; J0690; J2001; J2405; J2704; J3010; J3490; S0028